=== PATIENT | female | born 1965 | race Caucasian/White ===

== ENCOUNTER 2017-05-04 15:07 | Emergency (ER) | payer MEDICARE, MEDICAID ==
--- NOTE | 2017-05-04 18:01 | Emergency Department Record ---
History of Present Illness - General Chief Complaint: Syncope Stated Complaint: SYNCOPE EPISODE Time Seen by Provider: 05/04/17 15:42 Source: Patient Mode of Arrival: EMS Limitations: No limitations - History of Present Illness Initial Comments: pt states she passed out last night and has done this many many times. she states this was not a seizure, she has a hx of seizures, but this was witnessed by her dad who said she just passed out so he went home. she talked to her dad this morning when she woke up and he told her to go to the hospital. she had a ct and lab work yesterday. she sees a neurologist for her migraines and seizures.pt states this has happened for many months MD Complaint: Loss of consciousness Onset/Timin -: Days(s) Prodromal Symptoms: Headache Witnessed: Yes - by bystander Injuries Sustained Associated with Event: None Current Symptoms: Headache - [place] Coma Scale Eye Response: (4) Open spontaneously Motor Response: (6) Obeys commands Verbal Response: (5) Oriented [place] Total: 15 - Symptoms of Stroke Onset of Symptoms Date: 05/03/17 Onset of Symptoms Time: 22:00 - Related Data Allergies Allergy/AdvReac Type Severity Reaction Status Date / Time ketorolac tromethamine Allergy HIVES Verified 05/04/17 15:19 [From Toradol] citalopram hydrobromide AdvReac seizure Verified 05/04/17 15:19 [From Celexa] Travel Screening - Travel/Exposure Within Last 30 Days Have you traveled within the last 30 days?: No - Travel/Exposure Within Last Year Have you traveled outside the [place] in the last year?: No - Additonal Travel Details Have you been exposed to anyone with a communicable illness?: No - Travel Symptoms Symptom Screening: None Review of Systems Reviewed: No additional complaints except as noted below Constitutional: Reports: As per HPI. Denies: Chills, Fever, Malaise, Night sweats, Weakness, Weight change Eyes: Reports: As per HPI. Denies: Eye discharge, Eye pain, Photophobia, Vision change ENT: Reports: As per HPI. Denies: Congestion, Dental pain, Ear pain, Epistaxis , Hearing loss, Throat pain Respiratory: Reports: As per HPI. Denies: Cough, Dyspnea, Hemoptysis, Stridor, Wheezes Cardiovascular: Reports: As per HPI. Denies: Arrhythmia, Chest pain, Dyspnea on exertion, Edema, Murmurs, Orthopnea, Palpitations, Paroxysmal nocturnal dyspnea, Rheumatic Fever, Syncope Endocrine: Reports: As per HPI. Denies: Fatigue, Heat or cold intolerance, Polydipsia, Polyuria Gastrointestinal: Reports: As per HPI. Denies: Abdominal pain, Constipation, Diarrhea, Hematemesis, Hematochezia, Melena, Nausea, Vomiting Genitourinary: Reports: As per HPI. Denies: Abnormal menses, Discharge, Dyspareunia, Dysuria, Frequency, Hematuria, Incontinence, Retention, Urgency Musculoskeletal: Reports: As per HPI. Denies: Arthralgia, Back pain, Gout, Joint swelling, Myalgia, Neck pain Skin: Reports: As per HPI. Denies: Bruising, Change in color, Change in hair/ nails, Lesions, Pruritus, Rash Neurological: Reports: As per HPI. Denies: Abnormal gait, Confusion, Headache, Numbness, Paresthesias, Seizure, Tingling, Tremors, Vertigo, Weakness Psychiatric: Reports: As per HPI. Denies: Anxiety, Auditory hallucinations, Depression, Homicidal thoughts, Suicidal thoughts, Visual hallucinations Hematological/Lymphatic: Reports: As per HPI. Denies: Anemia, Blood Clots, Easy bleeding, Easy bruising, Swollen glands Past Medical History - SOCIAL HISTORY Smoking Status: Light tobacco smoker (<10/day) Alcohol Use: None Drug Use: None - RESPIRATORY Hx Respiratory Disorders: Yes Hx Asthma: Yes (controlled for now does inhalers and neb txs) Hx Bronchitis: Yes (last winter) Hx COPD: Yes Comment:: denies fever - CARDIOVASCULAR Hx Cardio Disorders: Yes Hx Chest Pain: Yes (states anxiety) Hx Hypotension: Yes (states gets real low) - NEURO Hx Neuro Disorders: Yes Hx of Migraines: Yes (trigeminal neuralgia) Hx Seizures: Yes (pt 7unsure of when last seizure was.) Comment:: daily headaches sees neurologist states grand mal seizures - GI Hx GI Disorders: Yes Hx Abdominal Pain: Yes Hx Reflux: Yes Hx Nausea/Vomiting: Yes Hx Wt Loss/Wt Gain: Yes - Hx Genitourinary Disorders: No - ENDOCRINE Hx Endocrine Disorders: No Hx Diabetes: No Hx Thyroid Disease: No - MUSCULOSKELETAL Hx Musculoskeletal Disorders: Yes Hx Arthritis: Yes Hx Fibromyalgia: Yes (dx in 20's) - PSYCH Hx Psych Problems: Yes Hx Anxiety: Yes Hx Depression: Yes Comment:: pt very hard to get PAT info and med list from, uncooperative. - HEMATOLOGY/ONCOLOGY Hx Hematology/Oncology Disorders: Yes Hx Bruising: Yes Hx Unexplained Bleeding: No (denies) Family Medical History Any Significant Family History?: Yes Hx HTN: Father Physical Exam - General General Appearance: Alert, Oriented x3, Cooperative, Mild distress - Head Head exam: Normal inspection - Eye Eye exam: Normal appearance, PERRL, EOMI Pupils: Normal accommodation - ENT ENT exam: Normal exam, Mucous membranes moist, Normal external ear exam, Normal orophraynx Ear exam: Normal external inspection. negative: External canal tenderness Nasal Exam: Normal inspection. negative: Discharge, Sinus tenderness Mouth exam: Normal external inspection, Tongue normal Teeth exam: Normal inspection. negative: Dental caries Throat exam: Normal inspection. negative: Tonsillar erythema, Tonsillar exudate - Neck Neck exam: Normal inspection, Full ROM. negative: Tenderness - Respiratory Respiratory exam: Normal lung sounds bilaterally. negative: Respiratory distress - Cardiovascular Cardiovascular Exam: Regular rate, Normal rhythm, Normal heart sounds - GI/Abdominal GI/Abdominal exam: Soft, Normal bowel sounds. negative: Tenderness - Rectal Rectal exam: Deferred - exam: Deferred - Extremities Extremities exam: Normal inspection, Full ROM, Normal capillary refill. negative: Tenderness - Back Back exam: Reports: Normal inspection, Full ROM. Denies: Muscle spasm, Rash noted, Tenderness - Neurological Neurological exam: Alert, Normal gait, Oriented X3, Reflexes normal - Psychiatric Psychiatric exam: Normal affect, Normal mood - Skin Skin exam: Dry, Intact, Normal color, Warm Course Vital Signs 05/04/17 05/04/17 15:11 17:15 Temperature 98.2 F Pulse Rate 92 H Pulse Rate [ 71 Pulse Ox Probe] Respiratory 16 16 Rate Blood Pressure 121/84 Blood Pressure 95/67 [Right Arm] Pulse Ox 95 100 Medical Decision Making - Lab Data Lab Results 05/04/17 Range/Units 16:32 Troponin I < 0.30 (0.00-0.300) ng/mL Disposition Disposition: Discharge Clinical Impression: Syncope Qualifiers: Syncope type: unspecified Qualified Code(s): R55 - Syncope and collapse Disposition: Home, Self-Care Condition: (1) Good Instructions: Syncope (ED) Additional Instructions: follow up with family doctor and neurologist and with leadership program intern. return sooner if worse. no driving, climbing. Referrals: JIMMIE HUNTER M.D. [MEDICAL DOCTOR] - [facility] [Provider Group] Forms: Patient Portal Access Quality - Quality Measures Quality Measures: N/A - Blood Pressure Screening Does Patient Have Any of the Following: No Blood Pressure Classification: Pre-Hypertensive BP Reading Systolic Measurement: 121 Diastolic Measurement: 84 Screening for High Blood Pressure: < Pre-Hypertensive BP, F/U Documented > [ G8950] Pre-Hypertensive Follow-up Interventions: Follow-up with rescreen every year.
== END 2017-05-04 18:16 | disposition home or self-care (01) ==
LOC: ER 15:07
DX: R55 Syncope and collapse (principal); R51 Headache
CPT/HCPCS: 84484; 93005; 93010; 99284

== ENCOUNTER 2018-02-09 22:51 | Emergency (ER) | payer MEDICARE, MEDICAID ==
[2018-02-09 23:25] LABS: BASO % 0.3 % (0-6); EOS % 1.2 % (0-6); GRAN % 60.5 % (47-80); HEMATOCRIT 41.1 % (35.0-47.0); HEMOGLOBIN 14.1 gm/dl (11.6-16.0); LYMPH % 32.2 % (16-45); MEAN CELL VOLUME 95.1 fl (81-97); MEAN CORPUSCULAR HEMOGLOBIN 32.6 pg (27-33); MEAN CORPUSCULAR HGB CONC 34.3 g/dl (32-36); MEAN PLATELET VOLUME 10.5 fl (7.4-10.4); MONO % 5.8 % (0-9); PLATELET COUNT 188 K/uL (130-400); RED BLOOD COUNT 4.32 M/uL (3.80-5.40); RED CELL DISTRIBUTION WIDTH 13.9 % (11.5-14.5); WHITE BLOOD COUNT W/O DIFF 7.4 K/uL (4.2-12.2)
[2018-02-09 23:34] LABS: BLOOD UREA NITROGEN 9 mg/dL (6-20); CREATININE 0.4 mg/dL (0.5-0.9); EST GLOMERULAR FILTRATION RATE > 60 mL/min
[2018-02-09 23:35] LABS: TOTAL PROTEIN 5.8 g/dL (6.6-8.7)
[2018-02-09 23:37] LABS: GLUCOSE,RANDOM 125 mg/dL (74-109)
[2018-02-09 23:40] LABS: ALB/GLOB RATIO 1.8 (1.1-1.8); ALBUMIN 3.7 g/dL (4.0-5.0); ALKALINE PHOSPHATASE 150 U/L (35-104); ALT/SGPT 12 U/L (<33); AST/SGOT 14 U/L (10.0-35.0)
[2018-02-09] MEDS ORDERED: POTASSIUM CHLORIDE 20 MEQ TABLET PO ONE (23:47)
[2018-02-10 00:08] LABS: URINE APPEARANCE CLEAR; URINE BILIRUBIN NEGATIVE (NEGATIVE); URINE BLOOD NEGATIVE (NEGATIVE); URINE COLOR YELLOW; URINE GLUCOSE (UA) NEGATIVE (NEGATIVE); URINE KETONE NEGATIVE (NEGATIVE); URINE LEUKOCYTE ESTERASE NEGATIVE (NEGATIVE); URINE NITRITE POSITIVE (NEGATIVE); URINE PROTEIN NEGATIVE (NEGATIVE); URINE UROBILINOGEN 0.2 E.U./dL (0.20 - 1.00)
[2018-02-10 00:15] LABS: URINE EPITHELIAL CELLS 0 - 2 (FEW); URINE RBC 0 - 2 (NONE SEEN)
[2018-02-10 00:16] LABS: URINE BACTERIA 1+
--- NOTE | 2018-02-10 01:05 | Emergency Department Record ---
History of Present Illness - General Chief Complaint: Fall Injury Stated Complaint: FALL Time Seen by Provider: 02/09/18 23:05 Source: Patient, EMS Mode of Arrival: Ambulatory Limitations: No limitations - History of Present Illness Initial Comments: pt fell 4 days ago hitting her head and has had increased difficulty. she states she was going to have a seizure [she has a hx of seizures] and had difficulty getting to the front door. she had taken morphine and oxycontin. 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 (4) Fall Witnessed: No Place Fall Occurred: Home Loss of Consciousness: None Prolonged Down Time?: Unclear Symptoms Prior to Fall: None Location: Head Severity scale (1-10): 8 - [place] Coma Scale Eye Response: (4) Open spontaneously Motor Response: (6) Obeys commands Verbal Response: (5) Oriented [place] Total: 15 - Related Data Allergies Allergy/AdvReac Type Severity Reaction Status Date / Time ketorolac tromethamine Allergy HIVES Verified 05/04/17 15:19 [From Toradol] citalopram hydrobromide AdvReac seizure Verified 05/04/17 15:19 [From Celexa] Travel Screening - Travel/Exposure Within Last 30 Days Have you traveled within the last 30 days?: No - Travel Symptoms Symptom Screening: None Review of Systems Reviewed: No additional complaints except as noted below Constitutional: Reports: As per HPI, Weakness. Denies: Chills, Fever, Malaise, Night sweats, Weight change Eyes: Reports: As per HPI. Denies: Eye discharge, Eye pain, Photophobia, Vision change ENT: Reports: As per HPI. Denies: Congestion, Dental pain, Ear pain, Epistaxis , Hearing loss, Throat pain Respiratory: Reports: As per HPI. Denies: Cough, Dyspnea, Hemoptysis, Stridor, Wheezes Cardiovascular: Reports: As per HPI. Denies: Arrhythmia, Chest pain, Dyspnea on exertion, Edema, Murmurs, Orthopnea, Palpitations, Paroxysmal nocturnal dyspnea, Rheumatic Fever, Syncope Endocrine: Reports: As per HPI. Denies: Fatigue, Heat or cold intolerance, Polydipsia, Polyuria Gastrointestinal: Reports: As per HPI. Denies: Abdominal pain, Constipation, Diarrhea, Hematemesis, Hematochezia, Melena, Nausea, Vomiting Genitourinary: Reports: As per HPI. Denies: Abnormal menses, Discharge, Dyspareunia, Dysuria, Frequency, Hematuria, Incontinence, Retention, Urgency Musculoskeletal: Reports: As per HPI. Denies: Arthralgia, Back pain, Gout, Joint swelling, Myalgia, Neck pain Skin: Reports: As per HPI. Denies: Bruising, Change in color, Change in hair/ nails, Lesions, Pruritus, Rash Neurological: Reports: As per HPI. Denies: Abnormal gait, Confusion, Headache, Numbness, Paresthesias, Seizure, Tingling, Tremors, Vertigo, Weakness Psychiatric: Reports: As per HPI. Denies: Anxiety, Auditory hallucinations, Depression, Homicidal thoughts, Suicidal thoughts, Visual hallucinations Hematological/Lymphatic: Reports: As per HPI. Denies: Anemia, Blood Clots, Easy bleeding, Easy bruising, Swollen glands Past Medical History - SOCIAL HISTORY Smoking Status: Light tobacco smoker (<10/day) - RESPIRATORY Hx Respiratory Disorders: Yes Hx Asthma: Yes (controlled for now does inhalers and neb txs) Hx Bronchitis: Yes (last winter) Hx COPD: Yes - CARDIOVASCULAR Hx Cardio Disorders: Yes Hx Chest Pain: Yes (states anxiety) Hx Hypotension: Yes (states gets real low) - NEURO Hx Neuro Disorders: Yes Hx of Migraines: Yes (trigeminal neuralgia) Hx Seizures: Yes (pt unsure of when last seizure was.) Comment:: daily headaches sees neurologist states grand mal seizures - GI Hx GI Disorders: Yes Hx Abdominal Pain: Yes Hx Reflux: Yes Hx Nausea/Vomiting: Yes Hx Wt Loss/Wt Gain: Yes - Hx Genitourinary Disorders: No - ENDOCRINE Hx Endocrine Disorders: No Hx Diabetes: No Hx Thyroid Disease: No - MUSCULOSKELETAL Hx Musculoskeletal Disorders: Yes Hx Arthritis: Yes Hx Fibromyalgia: Yes (dx in 20's) - PSYCH Hx Psych Problems: Yes Hx Anxiety: Yes Hx Depression: Yes Comment:: pt very hard to get PAT info and med list from, uncooperative. - HEMATOLOGY/ONCOLOGY Hx Hematology/Oncology Disorders: Yes Hx Bruising: Yes Hx Unexplained Bleeding: No (denies) Family Medical History Any Significant Family History?: Yes Hx HTN: Father Physical Exam - General General Appearance: Alert, Oriented x3, Cooperative, Mild distress - Head Head exam: Normal inspection - Eye Eye exam: Normal appearance, PERRL, EOMI Pupils: Normal accommodation - ENT ENT exam: Normal exam, Mucous membranes moist, Normal external ear exam, Normal orophraynx Ear exam: Normal external inspection. negative: External canal tenderness Nasal Exam: Normal inspection. negative: Discharge, Sinus tenderness Mouth exam: Normal external inspection, Tongue normal Teeth exam: Normal inspection. negative: Dental caries Throat exam: Normal inspection. negative: Tonsillar erythema, Tonsillar exudate - Neck Neck exam: Normal inspection, Full ROM. negative: Tenderness - Respiratory Respiratory exam: Normal lung sounds bilaterally. negative: Respiratory distress - Cardiovascular Cardiovascular Exam: Regular rate, Normal rhythm, Normal heart sounds - GI/Abdominal GI/Abdominal exam: Soft, Normal bowel sounds. negative: Tenderness - Rectal Rectal exam: Deferred - exam: Deferred - Extremities Extremities exam: Normal inspection, Full ROM, Normal capillary refill. negative: Tenderness - Back Back exam: Reports: Normal inspection, Full ROM. Denies: Muscle spasm, Rash noted, Tenderness - Neurological Neurological exam: Alert, CN II-XII intact, Normal gait, Oriented X3 - Psychiatric Psychiatric exam: Normal affect, Normal mood - Skin Skin exam: Dry, Intact, Normal color, Warm Course Vital Signs 02/09/18 02/09/18 02/10/18 22:57 23:50 00:55 Temperature 98.2 F Pulse Rate [ 74 Accordion Maker ] Pulse Rate [ 80 69 Pulse Ox Probe] Respiratory 16 16 24 Rate Blood Pressure 112/82 96/78 [Left Arm] Blood Pressure 116/87 [Right Arm] Pulse Ox 97 95 93 L - Reevaluation(s) Reevaluation #1: 02/10/18 01:04 pt usually uses a cane. she was able to ambulate around the dept with a walker Medical Decision Making - Lab Data Result diagrams: 02/09/18 23:03 02/09/18 23:03 Lab Results 02/09/18 02/09/18 02/10/18 Range/Units 23:03 23:03 00:09 WBC 7.4 (4.2-12.2) K/uL RBC 4.32 (3.80-5.40) M/uL Hgb 14.1 (11.6-16.0) gm/dl Hct 41.1 (35.0-47.0) % MCV 95.1 (81-97) fl MCH 32.6 (27-33) pg MCHC 34.3 (32-36) g/dl RDW 13.9 (11.5-14.5) % Plt Count 188 (130-400) K/uL MPV 10.5 H (7.4-10.4) fl Gran % 60.5 (47-80) % Lymphocytes % 32.2 (16-45) % Monocytes % 5.8 (0-9) % Eosinophils % 1.2 (0-6) % Basophils % 0.3 (0-6) % Sodium 134 L (136-145) mmol/L Potassium 3.2 L (3.4-4.5) mmol/L Chloride 95 L (98-107) mmol/L Carbon Dioxide 23.0 (22-29) mmol/L Anion Gap 16.0 (7-16) BUN 9 (6-20) mg/dL Creatinine 0.4 L (0.5-0.9) mg/dL Estimated GFR > 60 mL/min Random Glucose 125 H (74-109) mg/dL Calcium 8.7 (8.6-10.0) mg/dL Total Bilirubin 0.30 (0.2-1.0) mg/dL AST 14 (10.0-35.0) U/L ALT 12 (<33) U/L Alkaline Phosphatase 150 H (35-104) U/L Total Protein 5.8 L (6.6-8.7) g/dL Albumin 3.7 L (4.0-5.0) g/dL Globulin 2.1 (1.4-4.8) gm/dL Albumin/Globulin Ratio 1.8 (1.1-1.8) Urine Color Yellow Urine Appearance Clear Urine pH 7.0 (5.0-8.0) Ur Specific [place] 1.010 (1.002-1.030) Urine Protein Negative (NEGATIVE) Urine Glucose (UA) Negative (NEGATIVE) Urine Ketones Negative (NEGATIVE) Urine Blood Negative (NEGATIVE) Urine Nitrite Positive H (NEGATIVE) Urine Bilirubin Negative (NEGATIVE) Urine Urobilinogen 0.2 (0.20 - 1.00) E.U./dL Ur Leukocyte Esterase Negative (NEGATIVE) Urine RBC 0 - 2 (NONE SEEN) Urine WBC 6 - 10 (0-2/hpf) Ur Epithelial Cells 0 - 2 (FEW) Urine Bacteria 1+ Disposition Disposition: Discharge Clinical Impression: Head injury Qualifiers: Encounter type: initial encounter Qualified Code(s): S09.90XA - Unspecified injury of head, initial encounter Disposition: Home, Self-Care Condition: (1) Good Instructions: Fall Prevention for Older Adults (ED), Head Injury (ED) Additional Instructions: follow up with family doctor. return sooner if worse Quality - Quality Measures Quality Measures: N/A, Blunt Head Trauma (>2yr) - Blunt Head Trauma - Adult Quality Measure: Measure #415: Utilization of CT for Minor Blunt Head Trauma Was CT ordered: Yes Does Patient Have Any of the Following: No Exclusions Patient Presented Within 24 Hours of Injury: No [place] Score: Please complete [place] Coma Scale above Utilization of CT for Minor Blunt Head Trauma: Not Eligible For Measure Additional Inclusion Criteria: More than 24hrs (OR) GCS not 15 (OR) CT not ordered. Not Eligible Reason: Injury Greater Than 24 Hours Ago - Blood Pressure Screening Does Patient Have Any of the Following: No Blood Pressure Classification: Pre-Hypertensive BP Reading Systolic Measurement: 116 Diastolic Measurement: 87 Screening for High Blood Pressure: < Pre-Hypertensive BP, F/U Documented > [ G8950] Pre-Hypertensive Follow-up Interventions: Follow-up with rescreen every year.
--- NOTE | 2018-02-12 12:30 | RADIOLOGY REPORT ---
EXAM: FINGER(S), LEFT HISTORY: PATIENT FELL THREE DAYS AGO WITH INJURY TO MIDDLE FINGER, LEFT HAND. TECHNIQUE: Three views, left middle finger. Preliminary report provided by [facility]. COMPARISON: None. ENCOUNTER: Initial. FINDINGS: Mild soft tissue swelling is seen at the PIP joint. Mild degenerative arthritis at the PIP joint as well. No definite fracture or dislocation of the left third finger identified. Minor degenerative change at the first CMC articulation along the radial aspect of the wrist also incidentally noted. IMPRESSION: MILD SOFT TISSUE SWELLING AT THE PIP JOINT WITH NO DEFINITE FRACTURE IDENTIFIED. JOB NUMBER: [id number] [facility]TDD
--- NOTE | 2018-02-12 12:33 | CT SCAN REPORT ---
EXAM: CT SCAN HEAD WO CONTRAST HISTORY: PATIENT FELL THREE DAYS AGO WITH HEADACHE. TECHNIQUE: Axial CT scan of the head performed without IV contrast. Preliminary report provided by [facility]. COMPARISON: Head CT dated 05/03/17. ENCOUNTER: Initial. FINDINGS: No definite acute intracranial hemorrhage identified. No focal mass effect or midline shift apparent. No definite acute infarct or intracranial mass lesion is seen. No depressed calvarial fracture evident. IMPRESSION: EMERGENCY NONCONTRAST HEAD CT APPEARS NEGATIVE WITH NO DEFINITE ACUTE INTRACRANIAL HEMORRHAGE OR FOCAL MASS EFFECT IDENTIFIED. J[facility]BER: [id number] [facility]
== END 2018-02-10 01:18 | disposition home or self-care (01) ==
LOC: ER 22:51
DX: S09.90XA Unspecified injury of head, initial encounter (principal); M79.645 Pain in left finger(s); G40.909 Epilepsy, unspecified, not intractable, without status epilepticus; F17.210 Nicotine dependence, cigarettes, uncomplicated; W18.00XA Striking against unspecified object with subsequent fall, initial encounter; Y92.009 Unspecified place in unspecified non-institutional (private) residence as the place of occurrence of the external cause
CPT/HCPCS: 70450; 73140; 80053; 81001; 85025; 99283; 99284

== ENCOUNTER 2018-06-12 12:54 | Observation (INO) | payer MEDICARE, MEDICAID ==
[2018-06-12 13:10] LABS: BASO % 0.4 % (0-6); EOS % 0.1 % (0-6); GRAN % 74.7 % (47-80); HEMATOCRIT 42.2 % (35.0-47.0); HEMOGLOBIN 14.9 gm/dl (11.6-16.0); LYMPH % 20.1 % (16-45); MEAN CELL VOLUME 95.9 fl (81-97); MEAN CORPUSCULAR HEMOGLOBIN 33.9 pg (27-33); MEAN CORPUSCULAR HGB CONC 35.3 g/dl (32-36); MEAN PLATELET VOLUME 9.6 fl (7.4-10.4); MONO % 4.7 % (0-9); PLATELET COUNT 362 K/uL (130-400); RED CELL DISTRIBUTION WIDTH 14.6 % (11.5-14.5); WHITE BLOOD COUNT W/O DIFF 7.9 K/uL (4.2-12.2)
--- NOTE | 2018-06-12 13:11 | Emergency Department Record ---
History of Present Illness - General Stated Complaint: NUMBNESS/HEAD PAIN Time Seen by Provider: 06/12/18 12:58 Source: Patient - History of Present Illness Initial Comments: The patient called EMS to bring her here because her cat was circling around her "telling her to come here because she was going to seize." She states she has had diarrhea which is not bloody or black, and colitis for which she is taking Cipro since she was seen Saturday06-09-18 at her [facility] clinic. She also has a history of seizures for which she takes Lamictal. Her last seizure was about a month ago. She states she is numb all four extremities and has a headache in her facial area, "I think I have a sinus infection." She gives a scattered history but knows the month, year and location, stating it is Saturday (when today is ). She has not been eating "because everything I eat just comes out the other end." She lives alone in an apartment. EMS reports it was dis-sheveled and smelled strongly of smoke. MD Complaint: Other - Related Data Home Medications Medication Instructions Recorded Confirmed Last Taken Ciprofloxacin HCl [Cipro] 500 mg PO Q12HR 06/12/18 06/12/18 Unknown Multivitamin [Multi-Vitamin Daily] 1 each PO DAILY 06/12/18 06/12/18 Unknown Potassium Chloride 10 meq PO DAILY 06/12/18 06/12/18 Unknown Allergies Allergy/AdvReac Type Severity Reaction Status Date / Time ketorolac tromethamine Allergy HIVES Verified 06/12/18 13:08 [From Toradol] citalopram hydrobromide AdvReac seizure Verified 06/12/18 13:08 [From Celexa] Review of Systems Reviewed: No additional complaints except as noted below Constitutional: Reports: As per HPI. Denies: Chills, Fever, Malaise, Night sweats, Weakness, Weight change Eyes: Reports: As per HPI. Denies: Eye discharge, Eye pain, Photophobia, Vision change ENT: Reports: As per HPI. Denies: Congestion, Dental pain, Ear pain, Epistaxis , Hearing loss, Throat pain Respiratory: Reports: As per HPI. Denies: Cough, Dyspnea, Hemoptysis, Stridor, Wheezes Cardiovascular: Reports: As per HPI. Denies: Arrhythmia, Chest pain, Dyspnea on exertion, Edema, Murmurs, Orthopnea, Palpitations, Paroxysmal nocturnal dyspnea, Rheumatic Fever, Syncope Endocrine: Reports: As per HPI. Denies: Fatigue, Heat or cold intolerance, Polydipsia, Polyuria Gastrointestinal: Reports: As per HPI. Denies: Abdominal pain, Constipation, Diarrhea, Hematemesis, Hematochezia, Melena, Nausea, Vomiting Genitourinary: Reports: As per HPI. Denies: Abnormal menses, Discharge, Dyspareunia, Dysuria, Frequency, Hematuria, Incontinence, Retention, Urgency Musculoskeletal: Reports: As per HPI. Denies: Arthralgia, Back pain, Gout, Joint swelling, Myalgia, Neck pain Skin: Reports: As per HPI. Denies: Bruising, Change in color, Change in hair/ nails, Lesions, Pruritus, Rash Neurological: Reports: As per HPI. Denies: Abnormal gait, Confusion, Headache, Numbness, Paresthesias, Seizure, Tingling, Tremors, Vertigo, Weakness Psychiatric: Reports: As per HPI. Denies: Anxiety, Auditory hallucinations, Depression, Homicidal thoughts, Suicidal thoughts, Visual hallucinations Hematological/Lymphatic: Reports: As per HPI. Denies: Anemia, Blood Clots, Easy bleeding, Easy bruising, Swollen glands Past Medical History - SOCIAL HISTORY Smoking Status: Current every day smoker - RESPIRATORY Hx Respiratory Disorders: Yes Hx Asthma: Yes (controlled for now does inhalers and neb txs) Hx Bronchitis: Yes (last winter) Hx COPD: Yes - CARDIOVASCULAR Hx Cardio Disorders: Yes Hx Chest Pain: Yes (states anxiety) Hx Hypotension: Yes (states gets real low) - NEURO Hx Neuro Disorders: Yes Hx of Migraines: Yes (trigeminal neuralgia) Hx Seizures: Yes (pt unsure of when last seizure was.) Comment:: daily headaches sees neurologist states grand mal seizures - GI Hx GI Disorders: Yes Hx Abdominal Pain: Yes Hx Reflux: Yes Hx Nausea/Vomiting: Yes Hx Wt Loss/Wt Gain: Yes - Hx Genitourinary Disorders: No - ENDOCRINE Hx Endocrine Disorders: No Hx Diabetes: No Hx Thyroid Disease: No - MUSCULOSKELETAL Hx Musculoskeletal Disorders: Yes Hx Arthritis: Yes Hx Fibromyalgia: Yes (dx in 20's) - PSYCH Hx Psych Problems: Yes Hx Anxiety: Yes Hx Depression: Yes Comment:: pt very hard to get PAT info and med list from, uncooperative. - HEMATOLOGY/ONCOLOGY Hx Hematology/Oncology Disorders: Yes Hx Bruising: Yes Hx Unexplained Bleeding: No (denies) Family Medical History Hx HTN: Father Physical Exam - General General Appearance: Alert, Oriented x3, Cooperative, Mild distress (laying curled up on the cart requesting we cross tie turner the lights) - Head Head exam: Normal inspection - Eye Eye exam: Normal appearance, PERRL, EOMI. negative: Conjunctival injection, Nystagmus Pupils: Normal accommodation - ENT ENT exam: Normal exam, Mucous membranes dry, Normal external ear exam, Normal orophraynx, TM's normal bilaterally Ear exam: Normal external inspection. negative: External canal tenderness Nasal Exam: Normal inspection. negative: Discharge, Sinus tenderness Mouth exam: Normal external inspection, Tongue normal Teeth exam: Normal inspection. negative: Dental caries Throat exam: Normal inspection. negative: Tonsillar erythema, Tonsillar exudate - Neck Neck exam: Normal inspection, Full ROM. negative: Lymphadenopathy, Meningismus , Tenderness - Respiratory Respiratory exam: Normal lung sounds bilaterally, Decreased breath sounds, Prolonged expiratory. negative: Accessory muscle use, Chest wall tenderness, Respiratory distress, Stridor, Wheezes - Cardiovascular Cardiovascular Exam: Regular rate, Normal rhythm, Normal heart sounds - GI/Abdominal GI/Abdominal exam: Soft, Normal bowel sounds. negative: Distended, Guarding, Tenderness - Rectal Rectal exam: Deferred - exam: Deferred - Extremities Extremities exam: Normal inspection, Full ROM, Normal capillary refill. negative: Calf tenderness, Pedal edema, Tenderness - Back Back exam: Reports: Normal inspection, Full ROM. Denies: CVA tenderness (R), CVA tenderness (L), Muscle spasm, Rash noted, Tenderness - Neurological Neurological exam: Alert, CN II-XII intact, Normal gait, Oriented X3, Reflexes normal. negative: Motor sensory deficit - Psychiatric Psychiatric exam: Normal affect, Normal mood - Skin Skin exam: Dry, Intact, Normal color, Warm Course - Reevaluation(s) Reevaluation #1: 06/12/18 14:33 The patient had a BM mixed with urine at the bedside. All other results are back. Reevaluation #2: Patient is sleeping soundly curled up on cart. Discussed with Jessica LOMBARDI who agrees to admit to Dr. Rico's service OBV. Will also obtain social media senior associate consult. 06/12/18 14:56 06/12/18 14:57 Medical Decision Making - Data Complexity MDM Data: Labs Ordered and/or Reviewed, X-Ray Ordered and/or Reviewed ( Noncontrast Head CT: Negative for abnormality. CXR: Hyperinflation, cw COPD, no acute infiltrate, mild dextroscoliosis. Per radiologist.), EKG Ordered and/ or Reviewed (NSR @94/min; probable left atrial enlargement, no acute abnormality.) - Lab Data Result diagrams: 06/12/18 12:40 06/12/18 12:40 Disposition Disposition: Admit Clinical Impression: Hypokalemia, Dehydration, Colitis, History of seizure disorder COPD (chronic obstructive pulmonary disease) Qualifiers: COPD type: unspecified COPD Qualified Code(s): J44.9 - Chronic obstructive pulmonary disease, unspecified Disposition: Still a Patient at [facility] Decision to Admit: Admit from ER Decision to Admit Date: 06/12/18 Decision to Admit Time: 15:00 Accepting Physician: Dr. Rico/ Jessica LOMBARDI Time Discussed w/Accepting Physician: 15:00 Condition: (1) Good Quality - Quality Measures Quality Measures: N/A - Blood Pressure Screening Does Patient Have Any of the Following: No Blood Pressure Classification: Hypertensive Reading Systolic Measurement: 136 Diastolic Measurement: 90 Screening for High Blood Pressure: < Normal BP, F/U Not Required > [G8783]
[2018-06-12 13:21] LABS: BLOOD UREA NITROGEN 6 mg/dL (6-20); CREATININE 0.4 mg/dL (0.5-0.9); EST GLOMERULAR FILTRATION RATE > 60 mL/min
[2018-06-12 13:22] LABS: TOTAL PROTEIN 6.8 g/dL (6.6-8.7)
[2018-06-12 13:24] LABS: GLUCOSE,RANDOM 143 mg/dL (74-109)
[2018-06-12 13:26] LABS: PARTIAL THROMBOPLASTIN TIME 29.3 SECONDS (24.5-39.1); PROTHROMBIN TIME (PATIENT) 10.3 SECONDS (9.5-12.1)
[2018-06-12 13:27] LABS: ALB/GLOB RATIO 1.8 (1.1-1.8); ALBUMIN 4.4 g/dL (4.0-5.0); ALKALINE PHOSPHATASE 187 U/L (35-104); ALT/SGPT 25 U/L (<33); AST/SGOT 18 U/L (10.0-35.0)
[2018-06-12] MEDS ORDERED: 0.9 % SODIUM CHLORIDE 1,000 ML BAG IV ONE (13:27)
[2018-06-12] MEDS ORDERED: POTASSIUM CHLORIDE 20 MEQ TABLET PO ONE (13:32)
[2018-06-12 13:39] LABS: THYROID STIMULATING HORMONE 1.06 uIU/mL (0.270-4.20)
[2018-06-12] MEDS ORDERED: ACETAMINOPHEN 325 MG TAB PO ONE (13:47)
[2018-06-12] MEDS ORDERED: POTASSIUM CHL 20MEQ IN 1L NS 20 MEQ/1,000 ML BAG IV ONE ×2 (13:56→16:00)
[2018-06-12] MEDS ORDERED: LORAZEPAM 1 MG PO PRN (15:51)
[2018-06-12] MEDS ORDERED: ALBUTEROL HFA 8 GM INHALER INH PRN (15:51)
[2018-06-12] MEDS ORDERED: AL HYDROX/MAG HYDROX 30ML UD PO PRN (15:51)
[2018-06-12] MEDS: CLONAZEPAM 1MG TABLET PO SCH ×2 (17:10→21:22)
[2018-06-12] MEDS: BUTALB/ACETAMINOPHEN/CAFFEINE TABLET PO SCH ×2 (17:10→21:23)
[2018-06-12] MEDS: METRONIDAZOLE 250 MG TABLET PO SCH ×2 (17:12→21:22)
[2018-06-12] MEDS ORDERED: ALPRAZOLAM 1 MG TAB PO SCH (19:00)
[2018-06-12] MEDS ORDERED: NICOTINE 21 MG/24 HOUR PATCH TD SCH (19:45)
[2018-06-12] MEDS: ACETAMINOPHEN 325 MG TAB PO PRN (21:22)
[2018-06-12] MEDS: CIPROFLOXACIN HCL 500 MG TABLET PO SCH (21:22)
[2018-06-12] MEDS: LAMOTRIGINE 100 MG TABLET PO SCH (21:23)
[2018-06-12] MEDS: OXCARBAZEPINE 300 MG PO SCH (21:28)
[2018-06-12] MEDS ORDERED: OLANZAPINE 15 MG PO SCH (22:00)
[2018-06-12] MEDS ORDERED: QUETIAPINE FUMARATE 100 MG TABLET PO SCH (22:00)
[2018-06-12] MEDS ORDERED: ZONISAMIDE 400 MG PO SCH (22:00)
[2018-06-12 23:44] LABS: ALB/GLOB RATIO 1.8 (1.1-1.8); ALBUMIN 3.5 g/dL (4.0-5.0); ALKALINE PHOSPHATASE 148 U/L (35-104); ALT/SGPT 18 U/L (<33); AST/SGOT 14 U/L (10.0-35.0); BLOOD UREA NITROGEN 4 mg/dL (6-20); CREATININE 0.4 mg/dL (0.5-0.9); EST GLOMERULAR FILTRATION RATE > 60 mL/min; GLUCOSE,RANDOM 94 mg/dL (74-109); TOTAL PROTEIN 5.5 g/dL (6.6-8.7)
[2018-06-12] MEDS ORDERED: 0.9 % SODIUM CHLORIDE 1000ML 1,000 ML IV PRN (23:51)
[2018-06-13 01:21] LABS: URINE APPEARANCE CLEAR; URINE BILIRUBIN NEGATIVE (NEGATIVE); URINE BLOOD NEGATIVE (NEGATIVE); URINE COLOR YELLOW; URINE GLUCOSE (UA) NEGATIVE (NEGATIVE); URINE KETONE NEGATIVE (NEGATIVE); URINE LEUKOCYTE ESTERASE NEGATIVE (NEGATIVE); URINE NITRITE NEGATIVE (NEGATIVE); URINE PROTEIN NEGATIVE (NEGATIVE); URINE UROBILINOGEN 0.2 E.U./dL (0.20 - 1.00)
[2018-06-13] MEDS: ACETAMINOPHEN 325 MG TAB PO PRN ×2 (01:21→06:34)
[2018-06-13 01:25] LABS: AMPHETAMINE SCREEN URINE NOT DETECTED; COCAINE SCREEN URINE NOT DETECTED; METHADONE SCREEN URINE NOT DETECTED; METHAMPHETAMINE SCREEN NOT DETECTED; OPIATE SCREEN URINE NOT DETECTED; OXYCODONE SCREEN URINE NOT DETECTED; PHENCYCLIDINE SCREEN URINE NOT DETECTED; PROPOXYPHENE SCREEN URINE NOT DETECTED; THC SCREEN URINE NOT DETECTED
[2018-06-13 01:26] LABS: BARBITURATE SCREEN URINE DETECTED; BENZODIAZEPINE SCREEN URINE DETECTED; TRICYCLIC ANTIDEPRESSANT SCRN DETECTED
[2018-06-13 08:31] LABS: BLOOD UREA NITROGEN 4 mg/dL (6-20); CREATININE 0.4 mg/dL (0.5-0.9); EST GLOMERULAR FILTRATION RATE > 60 mL/min; GLUCOSE,RANDOM 93 mg/dL (74-109)
--- NOTE | 2018-06-13 09:43 | History & Physical ---
History of Present Illness - Date of Service Date of Service for History & Physical: 06/13/18 - History of Present Illness Admitting Diagnosis: Hypokalemia; dehydration; colitis; COPD; history of seizure disorder History of Present Illness: 53 year old female presented to ED via EMS after feeling that her heart was beating irregularly and noting that her cat was circling around her. Patient states her cat is a therapy cat and only circles around her when she is going to have a seizure. Patient states she saw her PCP on Saturday due to diarrhea x 4 days. Patient was started on Cipro and Flagyl at that time for colitis. Patient states she has continued to have multiple watery diarrhea stools since then and has not been able to tolerate any food due to immediate diarrhea. Patient denies nausea, vomiting, chills, chest pain, shortness of breath, or syncope. Patient also complained of generalized pain from her head to her feet , requesting "1000mg Orogrande". Patient states she was a previous [facility] patient for chronic pain but discharged due to her having a complicated case. Patient is a poor historian and scattered conversation. Oriented to person, place, time , and situation. Patient currently lives in an apartment alone and states she has an aid come in to the home twice per week to help. Past medical history includes seizures, bipolar, trigeminal neuralgia, and 2 ppd smoker. PCP: [facility] ED Course: Head CT: negative for acute process or abnormality Chest x-ray: hyperinflation consistent with COPD, no acute infiltrate, mild dextroscoliosis EKG: NSR rate 94, probable left atrial enlargement, no acute abnormality K 2.9 and given 20mEq K PO and 20mEq K IVPB security monitor 06/13/18: Patient A&O x 4, resting comfortably in bed. Patient has not had any diarrhea since admission, reports that her urine has cleared up as well. Patient tolerating clear liquid diet. Patient continues to complain of generalized pain, requesting O[place]grande for the pain. Patient has been offered Tylenol at this time. K improved this morning. Patient continues to have tangential conversation this morning, likely at her baseline. Travel Screening - Travel/Exposure Within Last 30 Days Have you traveled within the last 30 days?: No - Travel/Exposure Within Last Year Have you traveled outside the [place] in the last year?: No - Additonal Travel Details Have you been exposed to anyone with a communicable illness?: No - Travel Symptoms Symptom Screening: Joint & Muscle Aches, Weakness, Diarrhea Review of Systems Reviewed: No additional complaints except as noted below Constitutional: Reports: As per HPI. Denies: Chills, Fever, Malaise, Night sweats, Weakness, Weight change Eyes: Reports: As per HPI, Eye pain. Denies: Eye discharge, Photophobia, Vision change ENT: Reports: As per HPI, Congestion. Denies: Dental pain, Ear pain, Epistaxis , Hearing loss, Throat pain Respiratory: Reports: As per HPI. Denies: Cough, Dyspnea, Hemoptysis, Stridor, Wheezes Cardiovascular: Reports: As per HPI, Arrhythmia. Denies: Chest pain, Dyspnea on exertion, Edema, Murmurs, Orthopnea, Palpitations, Paroxysmal nocturnal dyspnea, Rheumatic Fever, Syncope Endocrine: Reports: As per HPI, Fatigue. Denies: Heat or cold intolerance, Polydipsia, Polyuria Gastrointestinal: Reports: As per HPI, Abdominal pain, Diarrhea. Denies: Constipation, Hematemesis, Hematochezia, Melena, Nausea, Vomiting Genitourinary: Reports: As per HPI. Denies: Abnormal menses, Discharge, Dyspareunia, Dysuria, Frequency, Hematuria, Incontinence, Retention, Urgency Musculoskeletal: Reports: As per HPI, Arthralgia, Back pain. Denies: Gout, Joint swelling, Myalgia, Neck pain Skin: Reports: As per HPI. Denies: Bruising, Change in color, Change in hair/ nails, Lesions, Pruritus, Rash Neurological: Reports: As per HPI. Denies: Abnormal gait, Confusion, Headache, Numbness, Paresthesias, Seizure, Tingling, Tremors, Vertigo, Weakness Psychiatric: Reports: As per HPI. Denies: Anxiety, Auditory hallucinations, Depression, Homicidal thoughts, Suicidal thoughts, Visual hallucinations Hematological/Lymphatic: Reports: As per HPI. Denies: Anemia, Blood Clots, Easy bleeding, Easy bruising, Swollen glands Past Medical History - SOCIAL HISTORY Smoking Status: Current every day smoker Alcohol Use: None Drug Use: Heavy Drug Use Detail:: Marijuana - RESPIRATORY Hx Respiratory Disorders: Yes Hx Asthma: Yes (controlled for now does inhalers and neb txs) Hx Bronchitis: Yes (last winter) Hx COPD: Yes - CARDIOVASCULAR Hx Cardio Disorders: Yes Hx Chest Pain: Yes (states anxiety) Hx Hypotension: Yes (states gets real low) - NEURO Hx Neuro Disorders: Yes Hx of Migraines: Yes (trigeminal neuralgia) Hx Seizures: Yes (pt unsure of when last seizure was.) Comment:: daily headaches sees neurologist states grand mal seizures - GI Hx GI Disorders: Yes Hx Abdominal Pain: Yes Hx Reflux: Yes Hx Nausea/Vomiting: Yes Hx Wt Loss/Wt Gain: Yes - Hx Genitourinary Disorders: No - ENDOCRINE Hx Endocrine Disorders: No Hx Diabetes: No Hx Thyroid Disease: No - MUSCULOSKELETAL Hx Musculoskeletal Disorders: Yes Hx Arthritis: Yes Hx Fibromyalgia: Yes (dx in 20's) - PSYCH Hx Psych Problems: Yes Hx Anxiety: Yes Hx Depression: Yes Comment:: pt very hard to get PAT info and med list from, uncooperative. - HEMATOLOGY/ONCOLOGY Hx Hematology/Oncology Disorders: Yes Hx Bruising: Yes Hx Unexplained Bleeding: No (denies) Family Medical History Any Significant Family History?: Yes Hx HTN: Father H&P Meds/Allergies - Allergies Allergies: Allergies Allergy/AdvReac Type Severity Reaction Status Date / Time ketorolac tromethamine Allergy HIVES Verified 06/12/18 13:08 [From Toradol] citalopram hydrobromide AdvReac seizure Verified 06/12/18 13:08 [From Celexa] - Home Medications Home Medications Medication Instructions Recorded Confirmed Last Taken Ciprofloxacin HCl [Cipro] 500 mg PO Q12HR 06/12/18 06/12/18 Unknown Clonazepam 1 mg PO TID 06/12/18 06/12/18 Unknown Lamotrigine [Lamictal] 300 mg PO BID 06/12/18 06/12/18 Unknown Metronidazole 500 mg PO TID 06/12/18 06/12/18 Unknown Multivitamin [Multi-Vitamin Daily] 1 each PO DAILY 06/12/18 06/12/18 Unknown Oxcarbazepine [Trileptal] 300 mg PO BID 06/12/18 06/12/18 Unknown Potassium Chloride 10 meq PO DAILY 06/12/18 06/12/18 Unknown Quetiapine Fumarate [Seroquel] 100 mg PO QHS 06/12/18 06/12/18 Unknown Zonisamide 400 mg PO QHS 06/12/18 06/12/18 Unknown - Active Medications Active Medications: Current Medications Acetaminophen (Tylenol 325mg) 650 mg PO Q4H PRN PRN Reason: PAIN - MILD(1-4)/FEVER Last Admin: 06/13/18 06:34 Dose: 650 mg Acetaminophen/Butalbital/Caffeine (Fioricet) 2 each PO TID [facility] Last Admin: 06/12/18 21:23 Dose: 2 each Al Hydroxide/Mg Hydroxide (Maalox) 30 ml PO Q4H PRN PRN Reason: GI UPSET Albuterol Sulfate (Ventolin Hfa) 2 puff INH Q4H PRN PRN Reason: SHORTNESS OF BREATH Alprazolam (Xanax) 1 mg PO 1300,1900 [facility] Last Admin: 06/12/18 21:09 Dose: 1 mg Ciprofloxacin (Cipro) 500 mg PO Q12HR [facility] Last Admin: 06/12/18 21:22 Dose: 500 mg Clonazepam (Klonopin) 1 mg PO TID [facility] Last Admin: 06/12/18 21:22 Dose: 1 mg Sodium Chloride () 1,000 mls @ 125 mls/hr IV .Q8H PRN PRN Reason: LARGE VOLUME IV Last Infusion: 06/13/18 06:31 Dose: 0 mls/hr Lamotrigine (Lamictal) 300 mg PO BID [facility] Last Admin: 06/12/18 21:23 Dose: 300 mg Metronidazole (Flagyl) 500 mg PO TID [facility] Last Admin: 06/12/18 21:22 Dose: 500 mg Multivitamins/Minerals (Centrum) 1 tab PO DAILY [facility] Nicotine (Nicotine 21mg) 1 patch TD Q24H [facility] Last Admin: 06/12/18 21:09 Dose: 1 patch Non-Formulary Misc (Zonisamide [ Zonisamide] 400 Mg) 400 mg PO QHS [facility] Last Admin: 06/12/18 21:28 Dose: 400 mg Patient Own Med: (Oxcarbazepine 300 Mg) 1 each PO BID [facility] Last Admin: 06/12/18 21:28 Dose: 1 each Potassium Chloride (Klor-Con) 10 meq PO DAILY [facility] Quetiapine Fumarate (Seroquel) 100 mg PO QHS [facility] Last Admin: 06/12/18 21:22 Dose: 100 mg Simvastatin (Zocor) 20 mg PO DAILY [facility] Physical Exam - Vital Signs Vital Signs: Vital Signs - Last 24 Hrs Temp Pulse Pulse Pulse Resp BP BP 06/13/18 08:31 18 06/13/18 07:00 98.1 F 96 H 18 119/85 06/12/18 20:00 98.0 F 89 20 105/80 06/12/18 19:07 98 H 18 06/12/18 15:45 98.2 F 100 H 18 135/85 06/12/18 15:18 100 H 16 118/73 06/12/18 13:42 100 H 16 121/81 06/12/18 13:02 98.7 F 99 H 16 136/90 Pulse Ox 06/13/18 08:31 06/13/18 07:00 96 06/12/18 20:00 96 06/12/18 19:07 06/12/18 15:45 98 06/12/18 15:18 96 06/12/18 13:42 97 06/12/18 13:02 97 - General General Appearance: Alert, Oriented x3, Cooperative, No acute distress - Head Head exam: Normal inspection - Eye Eye exam: Normal appearance, PERRL, EOMI. negative: Conjunctival injection, Nystagmus Pupils: Normal accommodation - ENT ENT exam: Normal exam, Mucous membranes moist, Normal orophraynx Ear exam: Normal external inspection. negative: External canal tenderness Nasal Exam: negative: Discharge, Sinus tenderness Mouth exam: Normal external inspection, Tongue normal Teeth exam: Normal inspection. negative: Dental caries Throat exam: Normal inspection. negative: Tonsillar erythema, Tonsillar exudate - Neck Neck exam: Normal inspection, Full ROM. negative: Lymphadenopathy, Meningismus , Tenderness - Respiratory Respiratory exam: Normal lung sounds bilaterally, Decreased breath sounds, Prolonged expiratory. negative: Accessory muscle use, Chest wall tenderness, Respiratory distress, Stridor, Wheezes - Cardiovascular Cardiovascular Exam: Regular rate, Normal rhythm, Normal heart sounds Peripheral Pulses: 2+: Radial (R), Radial (L), Dorsalis Pedis (R), Dorsalis Pedis (L) - GI/Abdominal GI/Abdominal exam: Soft, Hyperactive bowel sounds. negative: Distended, Guarding, Tenderness - Rectal Rectal exam: Deferred - exam: Deferred - Extremities Extremities exam: Normal inspection, Full ROM, Normal capillary refill. negative: Calf tenderness, Pedal edema, Tenderness - Back Back exam: Reports: Normal inspection, Full ROM. Denies: CVA tenderness (R), CVA tenderness (L), Muscle spasm, Rash noted, Tenderness - Neurological Neurological exam: Alert, CN II-XII intact, Normal gait, Oriented X3. negative : Motor sensory deficit - Psychiatric Psychiatric exam: Anxious, Normal affect, Normal mood, Other (tangential conversation) - Skin Skin exam: Dry, Intact, Normal color, Warm Results - Labs Result Diagrams: 06/12/18 12:40 06/13/18 08:00 Labs Last 24 Hours: Laboratory Results - last 24 hr 06/12/18 06/12/18 06/12/18 12:40 12:40 12:40 WBC 7.9 RBC 4.40 Hgb 14.9 Hct 42.2 MCV 95.9 MCH 33.9 H MCHC 35.3 RDW 14.6 H Plt Count 362 MPV 9.6 Gran % 74.7 Lymphocytes % 20.1 Monocytes % 4.7 Eosinophils % 0.1 Basophils % 0.4 PT 10.3 INR 1.0 APTT 29.3 D-Dimer 0.59 Sodium 133 L Potassium 3.0 L Chloride 96 L Carbon Dioxide 23.0 Anion Gap 14.0 BUN 6 Creatinine 0.4 L Estimated GFR > 60 Random Glucose 143 H Calcium 9.1 Total Bilirubin 0.30 AST 18 ALT 25 Alkaline Phosphatase 187 H Troponin T < 0.010 NT-Pro-B Natriuret Pep 41.50 Total Protein 6.8 Albumin 4.4 Globulin 2.4 Albumin/Globulin Ratio 1.8 TSH 1.06 Urine Color Urine Appearance Urine pH Ur Specific [place] Urine Protein Urine Glucose (UA) Urine Ketones Urine Blood Urine Nitrite Urine Bilirubin Urine Urobilinogen Ur Leukocyte Esterase Stool Occult Blood Stool for White Cells Urine Opiates Screen Ur Oxycodone Screen Urine Methadone Screen Ur Propoxyphene Screen Ur Barbiturates Screen Tricyclics Screen Ur Phencyclidine Scrn Ur Amphetamine Screen U Methamphetamines Scrn U Benzodiazepines Scrn Urine Cocaine Screen U Marijuana (THC) Screen Ethyl Alcohol 06/12/18 06/12/18 06/12/18 16:17 16:27 16:27 WBC RBC Hgb Hct MCV MCH MCHC RDW Plt Count MPV Gran % Lymphocytes % Monocytes % Eosinophils % Basophils % PT INR APTT D-Dimer Sodium Potassium Chloride Carbon Dioxide Anion Gap BUN Creatinine Estimated GFR Random Glucose Calcium Total Bilirubin AST ALT Alkaline Phosphatase Troponin T NT-Pro-B Natriuret Pep Total Protein Albumin Globulin Albumin/Globulin Ratio TSH Urine Color Urine Appearance Urine pH Ur Specific [place] Urine Protein Urine Glucose (UA) Urine Ketones Urine Blood Urine Nitrite Urine Bilirubin Urine Urobilinogen Ur Leukocyte Esterase Stool Occult Blood Cancelled Stool for White Cells Cancelled Urine Opiates Screen Ur Oxycodone Screen Urine Methadone Screen Ur Propoxyphene Screen Ur Barbiturates Screen Tricyclics Screen Ur Phencyclidine Scrn Ur Amphetamine Screen U Methamphetamines Scrn U Benzodiazepines Scrn Urine Cocaine Screen U Marijuana (THC) Screen Ethyl Alcohol 0.010 06/12/18 06/13/18 06/13/18 23:00 01:23 01:24 WBC RBC Hgb Hct MCV MCH MCHC RDW Plt Count MPV Gran % Lymphocytes % Monocytes % Eosinophils % Basophils % PT INR APTT D-Dimer Sodium 136 Potassium 3.7 Chloride 107 Carbon Dioxide 20.0 L Anion Gap 9.0 BUN 4 L Creatinine 0.4 L Estimated GFR > 60 Random Glucose 94 Calcium 8.4 L Total Bilirubin 0.30 AST 14 ALT 18 Alkaline Phosphatase 148 H Troponin T NT-Pro-B Natriuret Pep Total Protein 5.5 L Albumin 3.5 L Globulin 2.0 Albumin/Globulin Ratio 1.8 TSH Urine Color Yellow Urine Appearance Clear Urine pH 7.0 Ur Specific [place] 1.010 Urine Protein Negative Urine Glucose (UA) Negative Urine Ketones Negative Urine Blood Negative Urine Nitrite Negative Urine Bilirubin Negative Urine Urobilinogen 0.2 Ur Leukocyte Esterase Negative Stool Occult Blood Stool for White Cells Urine Opiates Screen Not detected Ur Oxycodone Screen Not detected Urine Methadone Screen Not detected Ur Propoxyphene Screen Not detected Ur Barbiturates Screen Detected Tricyclics Screen Detected Ur Phencyclidine Scrn Not detected Ur Amphetamine Screen Not detected U Methamphetamines Scrn Not detected U Benzodiazepines Scrn Detected Urine Cocaine Screen Not detected U Marijuana (THC) Screen Not detected Ethyl Alcohol 06/13/18 08:00 WBC RBC Hgb Hct MCV MCH MCHC RDW Plt Count MPV Gran % Lymphocytes % Monocytes % Eosinophils % Basophils % PT INR APTT D-Dimer Sodium 140 Potassium 3.7 Chloride 109 H Carbon Dioxide 19.0 L Anion Gap 12.0 BUN 4 L Creatinine 0.4 L Estimated GFR > 60 Random Glucose 93 Calcium 8.7 Total Bilirubin AST ALT Alkaline Phosphatase Troponin T NT-Pro-B Natriuret Pep Total Protein Albumin Globulin Albumin/Globulin Ratio TSH Urine Color Urine Appearance Urine pH Ur Specific [place] Urine Protein Urine Glucose (UA) Urine Ketones Urine Blood Urine Nitrite Urine Bilirubin Urine Urobilinogen Ur Leukocyte Esterase Stool Occult Blood Stool for White Cells Urine Opiates Screen Ur Oxycodone Screen Urine Methadone Screen Ur Propoxyphene Screen Ur Barbiturates Screen Tricyclics Screen Ur Phencyclidine Scrn Ur Amphetamine Screen U Methamphetamines Scrn U Benzodiazepines Scrn Urine Cocaine Screen U Marijuana (THC) Screen Ethyl Alcohol VTE H&P Assessment - Risk for VTE Risk for VTE: No Risk Level: Low Risk Assessment Date: 06/13/18 Risk Assessment Time: 09:00 VTE Orders Placed or Will Be Placed: No VTE Reason for No Prophylaxis: Not Indicated Plan - Detailed Diagnosis and Plan (1) Colitis Current Visit: Yes Status: Acute Base Code: K52.9 - NONINFECTIVE GASTROENTERITIS AND COLITIS, UNSPECIFIED Comment: 06/13/18: Patient was diagnosed with colitis by PCP on Saturday. Started on Cipro and Flagyl. Continues to have frequent watery stools daily. -Continue Cipro BID and Flagyl q8h -Clear liquid diet -Patient has not had BM since admission (2) Dehydration Current Visit: Yes Status: Acute Base Code: E86.0 - DEHYDRATION Comment: 06/13/18: Due to severe diarrhea, patient presents with dehydration as well. -0.9%NS @ 125ml/hr -Clear liquid diet, to advance as tolerated (3) Hypokalemia Current Visit: Yes Status: Acute Base Code: E87.6 - HYPOKALEMIA Comment: 06/13/18: K 2.9 upon admission -Replaced with 20mEq K PO and 20mEq K IVPB -K 3.7 this morning -Will continue to encourage increasing dietary intake of potassium. No further episodes of diarrhea since admission (4) DVT prophylaxis Current Visit: Yes Status: Acute Base Code: [id number] - Comment: 06/13/18: Low risk due to patient ambulating in room. -Encourage ambulation in room, no need for further prophylaxis at this time (5) Full code status Current Visit: Yes Status: Acute Base Code: Z78.9 - OTHER SPECIFIED HEALTH STATUS Comment: 06/13/18: Patient is a full code this admission
--- NOTE | 2018-06-13 09:55 | Discharge Summary ---
Providers Discharge Summary Date: 06/13/18 Date of admission: 06/12/18 15:27 Expected Date of Discharge: 06/13/18 Attending physician: NATALIA LEMONS Primary care physician: DELFINO MEJIA D.O. Consults: Consult Orders 06/12/18 18:07 Consult - Case Management Now Comment: Request for social service consult. Reason For Exam: Mental Health Physical Exam - Vital Signs Vital Signs: Vital Signs - Last 24 Hrs Temp Pulse Pulse Pulse Resp BP BP 06/13/18 08:31 18 06/13/18 07:00 98.1 F 96 H 18 119/85 06/12/18 20:00 98.0 F 89 20 105/80 06/12/18 19:07 98 H 18 06/12/18 15:45 98.2 F 100 H 18 135/85 06/12/18 15:18 100 H 16 118/73 06/12/18 13:42 100 H 16 121/81 06/12/18 13:02 98.7 F 99 H 16 136/90 Pulse Ox 06/13/18 08:31 06/13/18 07:00 96 06/12/18 20:00 96 06/12/18 19:07 06/12/18 15:45 98 06/12/18 15:18 96 06/12/18 13:42 97 06/12/18 13:02 97 - General General Appearance: Alert, Oriented x3, Cooperative, No acute distress - Head Head exam: Normal inspection - Eye Eye exam: Normal appearance, PERRL, EOMI. negative: Conjunctival injection, Nystagmus Pupils: Normal accommodation - ENT ENT exam: Normal exam, Mucous membranes moist, Normal orophraynx Ear exam: Normal external inspection. negative: External canal tenderness Nasal Exam: negative: Discharge, Sinus tenderness Mouth exam: Normal external inspection, Tongue normal Teeth exam: Normal inspection. negative: Dental caries Throat exam: Normal inspection. negative: Tonsillar erythema, Tonsillar exudate - Neck Neck exam: Normal inspection, Full ROM. negative: Lymphadenopathy, Meningismus , Tenderness - Respiratory Respiratory exam: Normal lung sounds bilaterally, Decreased breath sounds, Prolonged expiratory. negative: Accessory muscle use, Chest wall tenderness, Respiratory distress, Stridor, Wheezes - Cardiovascular Cardiovascular Exam: Regular rate, Normal rhythm, Normal heart sounds Peripheral Pulses: 2+: Radial (R), Radial (L), Dorsalis Pedis (R), Dorsalis Pedis (L) - GI/Abdominal GI/Abdominal exam: Soft, Hyperactive bowel sounds. negative: Distended, Guarding, Tenderness - Rectal Rectal exam: Deferred - exam: Deferred - Extremities Extremities exam: Normal inspection, Full ROM, Normal capillary refill. negative: Calf tenderness, Pedal edema, Tenderness - Back Back exam: Reports: Normal inspection, Full ROM. Denies: CVA tenderness (R), CVA tenderness (L), Muscle spasm, Rash noted, Tenderness - Neurological Neurological exam: Alert, CN II-XII intact, Normal gait, Oriented X3. negative : Motor sensory deficit - Psychiatric Psychiatric exam: Anxious, Normal affect, Normal mood, Other (tangential conversation) - Skin Skin exam: Dry, Intact, Normal color, Warm Hospitalization - Hospitalization Admission Diagnosis: Hypokalemia; dehydration; colitis; COPD; history of seizure disorder - Problem List/Discharge Diagnosis (1) Colitis Current Visit: Yes Status: Acute Base Code: K52.9 - NONINFECTIVE GASTROENTERITIS AND COLITIS, UNSPECIFIED Comment: 06/13/18: Patient was diagnosed with colitis by PCP on Saturday. Started on Cipro and Flagyl. Continues to have frequent watery stools daily. -Continue Cipro BID and Flagyl q8h, will continue upon dc as previously ordered -Clear liquid diet -Patient has not had BM since admission (2) Dehydration Current Visit: Yes Status: Acute Base Code: E86.0 - DEHYDRATION Comment: 06/13/18: Due to severe diarrhea, patient presents with dehydration as well. -Tolerating PO diet -Urine has cleared in appearance at this time -No further episodes of diarrhea since admission (3) Hypokalemia Current Visit: Yes Status: Acute Base Code: E87.6 - HYPOKALEMIA Comment: 06/13/18: K 2.9 upon admission -Replaced with 20mEq K PO and 20mEq K IVPB -K 3.7 this morning -Will continue to encourage increasing dietary intake of potassium. No further episodes of diarrhea since admission (4) DVT prophylaxis Current Visit: Yes Status: Acute Base Code: [id number] - Comment: 06/13/18: Low risk due to patient ambulating in room. -Encourage ambulation in room, no need for further prophylaxis upon dc (5) Full code status Current Visit: Yes Status: Acute Base Code: Z78.9 - OTHER SPECIFIED HEALTH STATUS Comment: 06/13/18: Patient is a full code this admission - Hospitalization Course Disposition: Home, Self-Care Hospital Course: 53 year old female presented to ED via EMS after feeling that her heart was beating irregularly and noting that her cat was circling around her. Patient states her cat is a therapy cat and only circles around her when she is going to have a seizure. Patient states she saw her PCP on Saturday due to diarrhea x 4 days. Patient was started on Cipro and Flagyl at that time for colitis. Patient states she has continued to have multiple watery diarrhea stools since then and has not been able to tolerate any food due to immediate diarrhea. Patient denies nausea, vomiting, chills, chest pain, shortness of breath, or syncope. Patient also complained of generalized pain from her head to her feet , requesting "1000mg [place]". Patient states she was a previous [facility] patient for chronic pain but discharged due to her having a complicated case. Patient is a poor historian and scattered conversation. Oriented to person, place, time , and situation. Patient currently lives in an apartment alone and states she has an aid come in to the home twice per week to help. Past medical history includes seizures, bipolar, trigeminal neuralgia, and 2 ppd smoker. PCP: Jackie ED Course: Head CT: negative for acute process or abnormality Chest x-ray: hyperinflation consistent with COPD, no acute infiltrate, mild dextroscoliosis EKG: NSR rate 94, probable left atrial enlargement, no acute abnormality K 2.9 and given 20mEq K PO and 20mEq K IVPB rn cardiac rehab 06/13/18: Patient A&O x 4, resting comfortably in bed. Patient has not had any diarrhea since admission, reports that her urine has cleared up as well. Patient tolerating clear liquid diet. Patient continues to complain of generalized pain, requesting [place] for the pain. Patient has been offered Tylenol at this time. K improved this morning. Patient continues to have tangential conversation this morning, likely at her baseline. Patient to follow-up with her PCP for further management of colitis and her complaints of chronic pain. 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 Abnormal Labs: Abnormal Lab Results 06/12/18 06/12/18 06/12/18 Range/Units 12:40 12:40 23:00 MCH 33.9 H (27-33) pg RDW 14.6 H (11.5-14.5) % Sodium 133 L (136-145) mmol/L Potassium 3.0 L (3.4-4.5) mmol/L Chloride 96 L (98-107) mmol/L Carbon Dioxide 20.0 L (22-29) mmol/L BUN 4 L (6-20) mg/dL Creatinine 0.4 L 0.4 L (0.5-0.9) mg/dL Random Glucose 143 H (74-109) mg/dL Calcium 8.4 L (8.6-10.0) mg/dL Alkaline Phosphatase 187 H 148 H (35-104) U/L Total Protein 5.5 L (6.6-8.7) g/dL Albumin 3.5 L (4.0-5.0) g/dL 06/13/18 Range/Units 08:00 MCH (27-33) pg RDW (11.5-14.5) % Sodium (136-145) mmol/L Potassium (3.4-4.5) mmol/L Chloride 109 H (98-107) mmol/L Carbon Dioxide 19.0 L (22-29) mmol/L BUN 4 L (6-20) mg/dL Creatinine 0.4 L (0.5-0.9) mg/dL Random Glucose (74-109) mg/dL Calcium (8.6-10.0) mg/dL Alkaline Phosphatase (35-104) U/L Total Protein (6.6-8.7) g/dL Albumin (4.0-5.0) g/dL Condition at Discharge: (1) Good VTE Discharge VTE Reason For No Overlap Therapy: Not Indicated Discharge Medications - Discharge Medications Home Medications: Ambulatory Orders Albuterol Sulfate [Proair Hfa] 2 puff INH Q4H PRN 04/25/14 [Last Taken 1 Day Ago ~05/03/17] Butalb/Acetaminophen/Caffeine [Yfzkxy-Zomcajak-Jyya 50-325-40] 2 tab PO TID [Last Taken 1 Day Ago ~05/03/17] Simvastatin 20 mg PO DAILY 04/25/14 [Last Taken 1 Day Ago ~05/03/17] Ciprofloxacin HCl [Cipro] 500 mg PO Q12HR 06/12/18 [Last Taken Unknown] Clonazepam 1 mg PO TID 06/12/18 [Last Taken Unknown] Lamotrigine [Lamictal] 300 mg PO BID 06/12/18 [Last Taken Unknown] Metronidazole 500 mg PO TID 06/12/18 [Last Taken Unknown] Multivitamin [Multi-Vitamin Daily] 1 each PO DAILY 06/12/18 [Last Taken Unknown] Oxcarbazepine [Trileptal] 300 mg PO BID 06/12/18 [Last Taken Unknown] Potassium Chloride 10 meq PO DAILY 06/12/18 [Last Taken Unknown] Quetiapine Fumarate [Seroquel] 100 mg PO QHS 06/12/18 [Last Taken Unknown] Zonisamide 400 mg PO QHS 06/12/18 [Last Taken Unknown] Alprazolam 1 mg PO BID 06/13/18 [Last Taken Unknown] Discharge Plan - Discharge Instructions Activity at Discharge: Increase Activity as Tolerated Diet at Discharge: Advance to Usual Diet Additional Instructions: -Slowly advance your diet as tolerating, starting off with bland foods -Continue drinking lots of fluids -Continue the Cipro and Flagyl until they are finished -Follow-up with Dr. Mejia in 2 weeks Quality Measures - Quality Measures Quality Measures: Documentation of Current Medications in Medical Record, Screening for High Blood Pressure and F/U Documented - Current Medications Quality Measure: Measure #130: Documentation of Current Medications Documentation of Current Medications: <Current Medications Documented/Reviewed> [G8427] - Blood Pressure Screening Quality Measure: Screening for High Blood Pressure and Follow-Up Documented Does Patient Have Any of the Following: No Blood Pressure Classification: Normal BP Reading Systolic Measurement: 118 Diastolic Measurement: 73 Screening for High Blood Pressure: < Normal BP, F/U Not Required > [G8783] - Elder Abuse Suspicion Index EASI Reference Information: Robert MEYERS, Meenakshi Cannon, Emily D, Helen Aldana.Development and validation of a tool to assist physicians identification of elder abuse: The Elder Abuse Suspicion Index (EASI ). Journal of Elder Abuse and Neglect, 2008; 20 (3): 276-300.
[2018-06-13] MEDS ORDERED: POTASSIUM CHLORIDE 10 MEQ TAB PO SCH (10:00)
[2018-06-13] MEDS ORDERED: MULTIVITAMINS/MINERALS TABLET PO SCH (10:00)
[2018-06-13] MEDS ORDERED: SIMVASTATIN 20 MG TABLET PO SCH (10:00)
[2018-06-13] MEDS ORDERED: Non-Formulary MISC (Escitalopram Oxalate [Lexapro] 20 MG) PO SCH (10:00)
[2018-06-13] MEDS: BUTALB/ACETAMINOPHEN/CAFFEINE TABLET PO SCH (10:11)
[2018-06-13] MEDS: CLONAZEPAM 1MG TABLET PO SCH (10:12)
[2018-06-13] MEDS: CIPROFLOXACIN HCL 500 MG TABLET PO SCH (10:12)
[2018-06-13] MEDS: LAMOTRIGINE 100 MG TABLET PO SCH (10:12)
[2018-06-13] MEDS: METRONIDAZOLE 250 MG TABLET PO SCH (10:12)
[2018-06-13] MEDS: OXCARBAZEPINE 300 MG PO SCH (10:13)
--- NOTE | 2018-06-14 07:23 | RADIOLOGY REPORT ---
EXAM: CHEST 2 VIEWS HISTORY: SEIZURE, HEADACHE. TECHNIQUE: AP upright and lateral views. COMPARISON: Two-view chest, 05/15/13. FINDINGS: Heart is not enlarged. Lungs again appear hyperinflated suggesting underlying COPD. No definite acute infiltrate is identified and no pleural effusion or pneumothorax evident. Thoracic curve to the right and a thoracolumbar curve to the left. IMPRESSION: 1. LUNGS APPEAR HYPERINFLATED, WHICH MAY REPRESENT UNDERLYING COPD. 2. MILD SCOLIOSIS. 3. NO ACUTE INFILTRATE EVIDENT. JOB NUMBER: [id number] [facility]
--- NOTE | 2018-06-14 07:25 | CT SCAN REPORT ---
EXAM: CT SCAN HEAD WO CONTRAST HISTORY: SEIZURE HISTORY, HEADACHE. TECHNIQUE: Axial CT scan of the head performed without IV contrast. COMPARISON: Head CT dated 02/09/18. FINDINGS: No definite acute intracranial hemorrhage identified. No focal mass effect or midline shift apparent. No definite acute infarct or intracranial mass lesion is seen. Visualized paranasal sinuses and mastoids all appear essentially clear. Mild deviation of the nasal septum to the left. IMPRESSION: EMERGENCY NONCONTRAST HEAD CT APPEARS ESSENTIALLY NEGATIVE WITH NO DEFINITE ACUTE INTRACRANIAL HEMORRHAGE OR FOCAL MASS EFFECT IDENTIFIED. JOB [facility]BER: [id number] [facility]
== END 2018-06-13 11:25 | disposition home or self-care (01) ==
LOC: ER 12:54 → MEDSURG 15:27
PROVIDERS: ADMIT Internal Medicine; ATTEND Internal Medicine
DX: K52.9 Noninfective gastroenteritis and colitis, unspecified (principal); E86.0 Dehydration; E87.6 Hypokalemia; J44.9 Chronic obstructive pulmonary disease, unspecified; G40.909 Epilepsy, unspecified, not intractable, without status epilepticus; G50.0 Trigeminal neuralgia; J45.909 Unspecified asthma, uncomplicated; I95.9 Hypotension, unspecified; M19.90 Unspecified osteoarthritis, unspecified site; M79.7 Fibromyalgia; K21.9 Gastro-esophageal reflux disease without esophagitis; F17.210 Nicotine dependence, cigarettes, uncomplicated; F12.90 Cannabis use, unspecified, uncomplicated; Z86.73 Personal history of transient ischemic attack (TIA), and cerebral infarction without residual deficits
CPT/HCPCS: 85025; 85730; 85610; 80305; 80048; 80053; 81003; 84443; 84484; 85379; 83880; 71046; 70450; 93005; G0378 ×2; G0480; 80320; 96365; 99220; 99285

== ENCOUNTER 2018-11-10 15:31 | Emergency (ER) | payer MEDICARE, MEDICAID ==
[2018-11-10 16:36] LABS: BASO % 0.2 % (0-6); EOS % 1.7 % (0-6); GRAN % 60.5 % (47-80); HEMATOCRIT 41.6 % (35.0-47.0); HEMOGLOBIN 14.5 gm/dl (11.6-16.0); LYMPH % 33.5 % (16-45); MEAN CELL VOLUME 97.2 fl (81-97); MEAN CORPUSCULAR HEMOGLOBIN 33.9 pg (27-33); MEAN CORPUSCULAR HGB CONC 34.9 g/dl (32-36); MEAN PLATELET VOLUME 11.3 fl (7.4-10.4); MONO % 4.1 % (0-9); PLATELET COUNT 161 K/uL (130-400); RED BLOOD COUNT 4.28 M/uL (3.80-5.40); RED CELL DISTRIBUTION WIDTH 14.4 % (11.5-14.5); WHITE BLOOD COUNT W/O DIFF 8.3 K/uL (4.2-12.2)
[2018-11-10 16:53] LABS: BLOOD UREA NITROGEN 8 mg/dL (6-20); CREATININE 0.5 mg/dL (0.5-0.9); EST GLOMERULAR FILTRATION RATE > 60 mL/min; TOTAL PROTEIN 6.6 g/dL (6.6-8.7)
[2018-11-10 16:55] LABS: GLUCOSE,RANDOM 85 mg/dL (74-109)
[2018-11-10 16:58] LABS: ALB/GLOB RATIO 1.6 (1.1-1.8); ALBUMIN 4.1 g/dL (4.0-5.0); ALKALINE PHOSPHATASE 154 U/L (35-104); ALT/SGPT 17 U/L (<33); AST/SGOT 18 U/L (10.0-35.0)
[2018-11-10 17:49] LABS: URINE APPEARANCE CLEAR; URINE BILIRUBIN NEGATIVE (NEGATIVE); URINE BLOOD NEGATIVE (NEGATIVE); URINE COLOR YELLOW; URINE GLUCOSE (UA) NEGATIVE (NEGATIVE); URINE KETONE NEGATIVE (NEGATIVE); URINE LEUKOCYTE ESTERASE TRACE (NEGATIVE); URINE NITRITE NEGATIVE (NEGATIVE); URINE PROTEIN NEGATIVE (NEGATIVE); URINE UROBILINOGEN 0.2 E.U./dL (0.20 - 1.00)
[2018-11-10] MEDS ORDERED: ACETAMINOPHEN 500 MG TABLET PO ONE (17:51)
[2018-11-10 17:58] LABS: URINE BACTERIA NONE SEEN; URINE RBC NONE SEEN (NONE SEEN); URINE WBC 0 - 2 (0-2/hpf)
[2018-11-10 17:59] LABS: AMPHETAMINE SCREEN URINE NOT DETECTED; BARBITURATE SCREEN URINE DETECTED; BENZODIAZEPINE SCREEN URINE DETECTED; COCAINE SCREEN URINE NOT DETECTED; METHADONE SCREEN URINE NOT DETECTED; METHAMPHETAMINE SCREEN NOT DETECTED; OPIATE SCREEN URINE NOT DETECTED; OXYCODONE SCREEN URINE DETECTED; PHENCYCLIDINE SCREEN URINE NOT DETECTED; PROPOXYPHENE SCREEN URINE NOT DETECTED; THC SCREEN URINE DETECTED; TRICYCLIC ANTIDEPRESSANT SCRN DETECTED
[2018-11-10] MEDS ORDERED: LORAZEPAM 2 MG/ML VIAL IM ONE ×2 (18:14→21:58)
--- NOTE | 2018-11-10 19:10 | Emergency Department Record ---
History of Present Illness - General Chief Complaint: Suicidal thoughts Stated Complaint: SUICIDAL IDEATION Time Seen by Provider: 11/10/18 16:12 Source: Patient, Police Mode of Arrival: with superintendent police. Limitations: No limitations Travel/Exposure to [place] Within 21 Days of Symptoms: No - History of Present Illness Initial Comments: pt brought in by police w a petition because she had told her pcps office that she was going to cut her head off. she admitted saying that and she also stated that she would rather then continue to live in pain. MD Complaint: Suicidal ideation -: Year(s) Associated Psychiatric Symptoms: Suicidal ideation History of same: Yes Quality: Constant Improves With: Other Context: Significant life stressor Associated Symptoms: Headache, Vomiting Treatments Prior to Arrival: None If Self Harm: Admits thoughts of self harm Details of Plan: Denies plan. - [place] Coma Scale Eye Response: (4) Open spontaneously Motor Response: (6) Obeys commands Verbal Response: (5) Oriented [place] Total: 15 - Related Data Allergies Allergy/AdvReac Type Severity Reaction Status Date / Time ketorolac tromethamine Allergy HIVES Verified 06/12/18 13:08 [From Toradol] citalopram hydrobromide AdvReac seizure Verified 06/12/18 13:08 [From Celexa] Review of Systems Reviewed: No additional complaints except as noted below Constitutional: Reports: As per HPI. Denies: Chills, Fever, Malaise, Night sweats, Weakness, Weight change Eyes: Reports: As per HPI. Denies: Eye discharge, Eye pain, Photophobia, Vision change ENT: Reports: As per HPI. Denies: Congestion, Dental pain, Ear pain, Epistaxis , Hearing loss, Throat pain Respiratory: Reports: As per HPI. Denies: Cough, Dyspnea, Hemoptysis, Stridor, Wheezes Cardiovascular: Reports: As per HPI. Denies: Arrhythmia, Chest pain, Dyspnea on exertion, Edema, Murmurs, Orthopnea, Palpitations, Paroxysmal nocturnal dyspnea, Rheumatic Fever, Syncope Endocrine: Reports: As per HPI. Denies: Fatigue, Heat or cold intolerance, Polydipsia, Polyuria Gastrointestinal: Reports: As per HPI. Denies: Abdominal pain, Constipation, Diarrhea, Hematemesis, Hematochezia, Melena, Nausea, Vomiting Genitourinary: Reports: As per HPI. Denies: Abnormal menses, Discharge, Dyspareunia, Dysuria, Frequency, Hematuria, Incontinence, Retention, Urgency Musculoskeletal: Reports: As per HPI, Back pain. Denies: Arthralgia, Gout, Joint swelling, Myalgia, Neck pain Skin: Reports: As per HPI. Denies: Bruising, Change in color, Change in hair/ nails, Lesions, Pruritus, Rash Neurological: Reports: As per HPI. Denies: Abnormal gait, Confusion, Headache, Numbness, Paresthesias, Seizure, Tingling, Tremors, Vertigo, Weakness Psychiatric: Reports: As per HPI, Suicidal thoughts. Denies: Anxiety, Auditory hallucinations, Depression, Homicidal thoughts, Visual hallucinations Hematological/Lymphatic: Reports: As per HPI. Denies: Anemia, Blood Clots, Easy bleeding, Easy bruising, Swollen glands Past Medical History - SOCIAL HISTORY Smoking Status: Current every day smoker Alcohol Use: None Drug Use: Heavy Drug Use Detail:: Marijuana - RESPIRATORY Hx Respiratory Disorders: Yes Hx Asthma: Yes (controlled for now does inhalers and neb txs) Hx Bronchitis: Yes (last winter) Hx COPD: Yes - CARDIOVASCULAR Hx Cardio Disorders: Yes Hx Chest Pain: Yes (states anxiety) Hx Hypotension: Yes (states gets real low) - NEURO Hx Neuro Disorders: Yes Hx of Migraines: Yes (trigeminal neuralgia) Hx Seizures: Yes (pt unsure of when last seizure was.) Comment:: daily headaches sees neurologist states grand mal seizures - GI Hx GI Disorders: Yes Hx Abdominal Pain: Yes Hx Reflux: Yes Hx Nausea/Vomiting: Yes Hx Wt Loss/Wt Gain: Yes - Hx Genitourinary Disorders: No - ENDOCRINE Hx Endocrine Disorders: No Hx Diabetes: No Hx Thyroid Disease: No - MUSCULOSKELETAL Hx Musculoskeletal Disorders: Yes Hx Arthritis: Yes Hx Fibromyalgia: Yes (dx in 20's) - PSYCH Hx Psych Problems: Yes Hx Anxiety: Yes Hx Depression: Yes Comment:: pt very hard to get PAT info and med list from, uncooperative. - HEMATOLOGY/ONCOLOGY Hx Hematology/Oncology Disorders: Yes Hx Bruising: Yes Hx Unexplained Bleeding: No (denies) Family Medical History Any Significant Family History?: Yes Hx Alcohol Use: Mother Hx Anxiety: Mother Hx HTN: Father Physical Exam - General General Appearance: Alert, Oriented x3, Cooperative, Mild distress - Head Head exam: Normal inspection - Eye Eye exam: Normal appearance, PERRL, EOMI Pupils: Normal accommodation - ENT ENT exam: Normal exam, Mucous membranes moist, Normal external ear exam, Normal orophraynx Ear exam: Normal external inspection. negative: External canal tenderness Nasal Exam: Normal inspection. negative: Discharge, Sinus tenderness Mouth exam: Normal external inspection, Tongue normal Teeth exam: Normal inspection. negative: Dental caries Throat exam: Normal inspection. negative: Tonsillar erythema, Tonsillar exudate - Neck Neck exam: Normal inspection, Full ROM. negative: Tenderness - Respiratory Respiratory exam: Normal lung sounds bilaterally. negative: Respiratory distress - Cardiovascular Cardiovascular Exam: Regular rate, Normal rhythm, Normal heart sounds - GI/Abdominal GI/Abdominal exam: Soft, Normal bowel sounds. negative: Tenderness - Rectal Rectal exam: Deferred - exam: Deferred - Extremities Extremities exam: Normal inspection, Full ROM, Normal capillary refill. negative: Tenderness - Back Back exam: Reports: Normal inspection, Full ROM. Denies: Muscle spasm, Rash noted, Tenderness - Neurological Neurological exam: Alert, CN II-XII intact, Normal gait, Oriented X3 - Psychiatric Psychiatric exam: Agitated, Anxious, Depressed, Suicidal ideation - Skin Skin exam: Dry, Intact, Normal color, Warm Course Vital Signs 11/10/18 11/10/18 15:34 17:08 Temperature 97.3 F L Pulse Rate 79 Respiratory 18 Rate Blood Pressure 103/67 Pulse Ox 97 - Reevaluation(s) Reevaluation #1: 11/10/18 19:11 pt became threatening to staff and attempting to leave Medical Decision Making - Lab Data Result diagrams: 11/10/18 16:25 11/10/18 16:25 Lab Results 11/10/18 11/10/18 11/10/18 Range/Units 16:25 16:25 16:25 WBC 8.3 (4.2-12.2) K/uL RBC 4.28 (3.80-5.40) M/uL Hgb 14.5 (11.6-16.0) gm/dl Hct 41.6 (35.0-47.0) % MCV 97.2 H (81-97) fl MCH 33.9 H (27-33) pg MCHC 34.9 (32-36) g/dl RDW 14.4 (11.5-14.5) % Plt Count 161 (130-400) K/uL MPV 11.3 H (7.4-10.4) fl Gran % 60.5 (47-80) % Lymphocytes % 33.5 (16-45) % Monocytes % 4.1 (0-9) % Eosinophils % 1.7 (0-6) % Basophils % 0.2 (0-6) % Sodium 142 (136-145) mmol/L Potassium 4.1 (3.4-4.5) mmol/L Chloride 109 H (98-107) mmol/L Carbon Dioxide 22.0 (22-29) mmol/L Anion Gap 11.0 (7-16) BUN 8 (6-20) mg/dL Creatinine 0.5 (0.5-0.9) mg/dL Estimated GFR > 60 mL/min Random Glucose 85 (74-109) mg/dL Calcium 9.4 (8.6-10.0) mg/dL Total Bilirubin 0.20 (0.2-1.0) mg/dL AST 18 (10.0-35.0) U/L ALT 17 (<33) U/L Alkaline Phosphatase 154 H (35-104) U/L Total Protein 6.6 (6.6-8.7) g/dL Albumin 4.1 (4.0-5.0) g/dL Globulin 2.5 (1.4-4.8) gm/dL Albumin/Globulin Ratio 1.6 (1.1-1.8) TSH 1.32 (0.270-4.20) uIU/mL Urine Color Urine Appearance Urine pH (5.0-8.0) Ur Specific [place] (1.002-1.030) Urine Protein (NEGATIVE) Urine Glucose (UA) (NEGATIVE) Urine Ketones (NEGATIVE) Urine Blood (NEGATIVE) Urine Nitrite (NEGATIVE) Urine Bilirubin (NEGATIVE) Urine Urobilinogen (0.20 - 1.00) E.U./dL Ur Leukocyte Esterase (NEGATIVE) Urine RBC (NONE SEEN) Urine WBC (0-2/hpf) Ur Epithelial Cells (FEW) Urine Bacteria Urine Opiates Screen Ur Oxycodone Screen Urine Methadone Screen Ur Propoxyphene Screen Ur Barbituates Screen Ur Tricyclics Screen Ur Phencyclidine Scrn Ur Amphetamine Screen U Methamphetamines Scrn U Benzodiazepines Scrn Urine Cocaine Screen Urine Cannabis Screen Ethyl Alcohol 0.000 (0-0.010) g/dL 11/10/18 11/10/18 Range/Units 17:30 17:40 WBC (4.2-12.2) K/uL RBC (3.80-5.40) M/uL Hgb (11.6-16.0) gm/dl Hct (35.0-47.0) % MCV (81-97) fl MCH (27-33) pg MCHC (32-36) g/dl RDW (11.5-14.5) % Plt Count (130-400) K/uL MPV (7.4-10.4) fl Gran % (47-80) % Lymphocytes % (16-45) % Monocytes % (0-9) % Eosinophils % (0-6) % Basophils % (0-6) % Sodium (136-145) mmol/L Potassium (3.4-4.5) mmol/L Chloride (98-107) mmol/L Carbon Dioxide (22-29) mmol/L Anion Gap (7-16) BUN (6-20) mg/dL Creatinine (0.5-0.9) mg/dL Estimated GFR mL/min Random Glucose (74-109) mg/dL Calcium (8.6-10.0) mg/dL Total Bilirubin (0.2-1.0) mg/dL AST (10.0-35.0) U/L ALT (<33) U/L Alkaline Phosphatase (35-104) U/L Total Protein (6.6-8.7) g/dL Albumin (4.0-5.0) g/dL Globulin (1.4-4.8) gm/dL Albumin/Globulin Ratio (1.1-1.8) TSH (0.270-4.20) uIU/mL Urine Color Yellow Urine Appearance Clear Urine pH 7.0 (5.0-8.0) Ur Specific [place] 1.015 (1.002-1.030) Urine Protein Negative (NEGATIVE) Urine Glucose (UA) Negative (NEGATIVE) Urine Ketones Negative (NEGATIVE) Urine Blood Negative (NEGATIVE) Urine Nitrite Negative (NEGATIVE) Urine Bilirubin Negative (NEGATIVE) Urine Urobilinogen 0.2 (0.20 - 1.00) E.U./dL Ur Leukocyte Esterase Trace H (NEGATIVE) Urine RBC None seen (NONE SEEN) Urine WBC 0 - 2 (0-2/hpf) Ur Epithelial Cells 3 - 6 (FEW) Urine Bacteria None seen Urine Opiates Screen Not detected Ur Oxycodone Screen Detected Urine Methadone Screen Not detected Ur Propoxyphene Screen Not detected Ur Barbituates Screen Detected Ur Tricyclics Screen Detected Ur Phencyclidine Scrn Not detected Ur Amphetamine Screen Not detected U Methamphetamines Scrn Not detected U Benzodiazepines Scrn Detected Urine Cocaine Screen Not detected Urine Cannabis Screen Detected Ethyl Alcohol (0-0.010) g/dL Disposition Disposition: Transfer Clinical Impression: Suicidal ideation Disposition: Acute Care Hospital Transfer Transfer To: [facility] Reason For Transfer: suicidal Accepting Physician: psych Time Discussed w/Accepting Physician: 19:33 Forms: Patient Portal Access Quality - Quality Measures Quality Measures: N/A - Blood Pressure Screening Does Patient Have Any of the Following: No Blood Pressure Classification: Normal BP Reading Systolic Measurement: 103 Diastolic Measurement: 67 Screening for High Blood Pressure: < Normal BP, F/U Not Required > [G8783]
[2018-11-10] MEDS ORDERED: LORAZEPAM 2 MG/ML VIAL IV ONE (19:14)
[2018-11-10] MEDS ORDERED: OLANZAPINE 5MG TABLET PO SCH (19:15)
[2018-11-10] MEDS ORDERED: BUTALB/ACETAMINOPHEN/CAFFEINE TABLET PO ONE (19:17)
[2018-11-10] MEDS ORDERED: OLANZAPINE 10 MG VIAL IM ONE (21:05)
--- NOTE | 2018-11-10 21:08 | Emergency Department Record ---
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 Travel/Exposure to [place] Within 21 Days of Symptoms: No - History of Present Illness -: Year(s) Associated Psychiatric Symptoms: Suicidal ideation History of same: Yes Quality: Constant Improves With: Other Context: Significant life stressor Associated Symptoms: Headache, Vomiting Treatments Prior to Arrival: None If Self Harm: Admits thoughts of self harm Details of Plan: Denies plan. - [place] Coma Scale Eye Response: (4) Open spontaneously Motor Response: (6) Obeys commands Verbal Response: (5) Oriented Brent Total: 15 - Related Data Allergies Allergy/AdvReac Type Severity Reaction Status Date / Time ketorolac tromethamine Allergy HIVES Verified 06/12/18 13:08 [From Toradol] citalopram hydrobromide AdvReac seizure Verified 06/12/18 13:08 [From Celexa] Review of Systems Constitutional: Reports: As per HPI. Denies: Chills, Fever, Malaise, Night sweats, Weakness, Weight change Eyes: Reports: As per HPI. Denies: Eye discharge, Eye pain, Photophobia, Vision change ENT: Reports: As per HPI. Denies: Congestion, Dental pain, Ear pain, Epistaxis , Hearing loss, Throat pain Respiratory: Reports: As per HPI. Denies: Cough, Dyspnea, Hemoptysis, Stridor, Wheezes Cardiovascular: Reports: As per HPI. Denies: Arrhythmia, Chest pain, Dyspnea on exertion, Edema, Murmurs, Orthopnea, Palpitations, Paroxysmal nocturnal dyspnea, Rheumatic Fever, Syncope Endocrine: Reports: As per HPI. Denies: Fatigue, Heat or cold intolerance, Polydipsia, Polyuria Gastrointestinal: Reports: As per HPI. Denies: Abdominal pain, Constipation, Diarrhea, Hematemesis, Hematochezia, Melena, Nausea, Vomiting Genitourinary: Reports: As per HPI. Denies: Abnormal menses, Discharge, Dyspareunia, Dysuria, Frequency, Hematuria, Incontinence, Retention, Urgency Musculoskeletal: Reports: As per HPI, Back pain. Denies: Arthralgia, Gout, Joint swelling, Myalgia, Neck pain Skin: Reports: As per HPI. Denies: Bruising, Change in color, Change in hair/ nails, Lesions, Pruritus, Rash Neurological: Reports: As per HPI. Denies: Abnormal gait, Confusion, Headache, Numbness, Paresthesias, Seizure, Tingling, Tremors, Vertigo, Weakness Psychiatric: Reports: As per HPI, Suicidal thoughts. Denies: Anxiety, Auditory hallucinations, Depression, Homicidal thoughts, Visual hallucinations Hematological/Lymphatic: Reports: As per HPI. Denies: Anemia, Blood Clots, Easy bleeding, Easy bruising, Swollen glands Past Medical History - SOCIAL HISTORY Smoking Status: Current every day smoker Alcohol Use: None Drug Use: Heavy Drug Use Detail:: Marijuana - RESPIRATORY Hx Respiratory Disorders: Yes Hx Asthma: Yes (controlled for now does inhalers and neb txs) Hx Bronchitis: Yes (last winter) Hx COPD: Yes - CARDIOVASCULAR Hx Cardio Disorders: Yes Hx Chest Pain: Yes (states anxiety) Hx Hypotension: Yes (states gets real low) - NEURO Hx Neuro Disorders: Yes Hx of Migraines: Yes (trigeminal neuralgia) Hx Seizures: Yes (pt unsure of when last seizure was.) Comment:: daily headaches sees neurologist states grand mal seizures - GI Hx GI Disorders: Yes Hx Abdominal Pain: Yes Hx Reflux: Yes Hx Nausea/Vomiting: Yes Hx Wt Loss/Wt Gain: Yes - Hx Genitourinary Disorders: No - ENDOCRINE Hx Endocrine Disorders: No Hx Diabetes: No Hx Thyroid Disease: No - MUSCULOSKELETAL Hx Musculoskeletal Disorders: Yes Hx Arthritis: Yes Hx Fibromyalgia: Yes (dx in 20's) - PSYCH Hx Psych Problems: Yes Hx Anxiety: Yes Hx Depression: Yes Comment:: pt very hard to get PAT info and med list from, uncooperative. - HEMATOLOGY/ONCOLOGY Hx Hematology/Oncology Disorders: Yes Hx Bruising: Yes Hx Unexplained Bleeding: No (denies) Family Medical History Any Significant Family History?: Yes Hx Alcohol Use: Mother Hx Anxiety: Mother Hx HTN: Father Physical Exam - General Limitations: No limitations Course Vital Signs 11/10/18 11/10/18 15:34 17:08 Temperature 97.3 F L Pulse Rate 79 Respiratory 18 Rate Blood Pressure 103/67 Pulse Ox 97 - Reevaluation(s) Reevaluation #1: 11/10/18 21:07 Assumed care from previous provider. Patient is unable to go to [facility] as previously planned by previous provider due to insurance reasons. Patient is unwilling to remain in her room, becoming increasingly agitated, soft restraints ordered and Zyprexa ordered IM. Reevaluation #2: 11/10/18 21:27 After numerous attempts at verbal de-escalation, patient has now been restrained with soft restraints, Zyprexa 10 mg IM ordered. Will continue to monitor closely. Nursing staff is attempting to find placement at this time as well. Reevaluation #3: 11/10/18 21:36 Patient was reassessed, more calm at this time. Assured the patient that staff are attempting to place the patient at this time. Reevaluation #4: 11/10/18 21:57 Patient now becoming more agitated, shouting obscenities at staff members with room open. Benadryl and Ativan ordered for continued agitation with the goal of removing soft restraints. Reevaluation #5: 11/10/18 22:30 Patient was reassessed following Ativan and Benadryl, she is awake, calmer. Will attempt to partially remove restraints soon. 11/10/18 23:36 Zachary and Stanislaw Chau have declined the patient at this time. Packets faxed to [facility]. Patient intermittently yelling at staff from the room, will continue to monitor. 11/11/18 00:37 Patient used bedside commode with nursing staff present Will leave restraints off at this time and continue to observe. 11/11/18 01:58 Patient is resting comfortably at this time. Chelo and Kiran Landis have denied the patient. Will continue to observe. 11/11/18 02:13 Patient has been accepted to [facility] in [place], [place] for transport at 6:00 AM. 11/11/18 05:40 Report called to [facility], awaiting EMS transfer around 6: 30 AM. Patient continues to sleep, resting comfortably on re-examination. Medical Decision Making - Lab Data Result diagrams: 11/10/18 16:25 11/10/18 16:25 Lab Results 11/10/18 11/10/18 11/10/18 Range/Units 16:25 16:25 16:25 WBC 8.3 (4.2-12.2) K/uL RBC 4.28 (3.80-5.40) M/uL Hgb 14.5 (11.6-16.0) gm/dl Hct 41.6 (35.0-47.0) % MCV 97.2 H (81-97) fl MCH 33.9 H (27-33) pg MCHC 34.9 (32-36) g/dl RDW 14.4 (11.5-14.5) % Plt Count 161 (130-400) K/uL MPV 11.3 H (7.4-10.4) fl Gran % 60.5 (47-80) % Lymphocytes % 33.5 (16-45) % Monocytes % 4.1 (0-9) % Eosinophils % 1.7 (0-6) % Basophils % 0.2 (0-6) % Sodium 142 (136-145) mmol/L Potassium 4.1 (3.4-4.5) mmol/L Chloride 109 H (98-107) mmol/L Carbon Dioxide 22.0 (22-29) mmol/L Anion Gap 11.0 (7-16) BUN 8 (6-20) mg/dL Creatinine 0.5 (0.5-0.9) mg/dL Estimated GFR > 60 mL/min Random Glucose 85 (74-109) mg/dL Calcium 9.4 (8.6-10.0) mg/dL Total Bilirubin 0.20 (0.2-1.0) mg/dL AST 18 (10.0-35.0) U/L ALT 17 (<33) U/L Alkaline Phosphatase 154 H (35-104) U/L Total Protein 6.6 (6.6-8.7) g/dL Albumin 4.1 (4.0-5.0) g/dL Globulin 2.5 (1.4-4.8) gm/dL Albumin/Globulin Ratio 1.6 (1.1-1.8) TSH 1.32 (0.270-4.20) uIU/mL Urine Color Urine Appearance Urine pH (5.0-8.0) Ur Specific [place] (1.002-1.030) Urine Protein (NEGATIVE) Urine Glucose (UA) (NEGATIVE) Urine Ketones (NEGATIVE) Urine Blood (NEGATIVE) Urine Nitrite (NEGATIVE) Urine Bilirubin (NEGATIVE) Urine Urobilinogen (0.20 - 1.00) E.U./dL Ur Leukocyte Esterase (NEGATIVE) Urine RBC (NONE SEEN) Urine WBC (0-2/hpf) Ur Epithelial Cells (FEW) Urine Bacteria Urine Opiates Screen Ur Oxycodone Screen Urine Methadone Screen Ur Propoxyphene Screen Ur Barbituates Screen Ur Tricyclics Screen Ur Phencyclidine Scrn Ur Amphetamine Screen U Methamphetamines Scrn U Benzodiazepines Scrn Urine Cocaine Screen Urine Cannabis Screen Ethyl Alcohol 0.000 (0-0.010) g/dL 11/10/18 11/10/18 Range/Units 17:30 17:40 WBC (4.2-12.2) K/uL RBC (3.80-5.40) M/uL Hgb (11.6-16.0) gm/dl Hct (35.0-47.0) % MCV (81-97) fl MCH (27-33) pg MCHC (32-36) g/dl RDW (11.5-14.5) % Plt Count (130-400) K/uL MPV (7.4-10.4) fl Gran % (47-80) % Lymphocytes % (16-45) % Monocytes % (0-9) % Eosinophils % (0-6) % Basophils % (0-6) % Sodium (136-145) mmol/L Potassium (3.4-4.5) mmol/L Chloride (98-107) mmol/L Carbon Dioxide (22-29) mmol/L Anion Gap (7-16) BUN (6-20) mg/dL Creatinine (0.5-0.9) mg/dL Estimated GFR mL/min Random Glucose (74-109) mg/dL Calcium (8.6-10.0) mg/dL Total Bilirubin (0.2-1.0) mg/dL AST (10.0-35.0) U/L ALT (<33) U/L Alkaline Phosphatase (35-104) U/L Total Protein (6.6-8.7) g/dL Albumin (4.0-5.0) g/dL Globulin (1.4-4.8) gm/dL Albumin/Globulin Ratio (1.1-1.8) TSH (0.270-4.20) uIU/mL Urine Color Yellow Urine Appearance Clear Urine pH 7.0 (5.0-8.0) Ur Specific [place] 1.015 (1.002-1.030) Urine Protein Negative (NEGATIVE) Urine Glucose (UA) Negative (NEGATIVE) Urine Ketones Negative (NEGATIVE) Urine Blood Negative (NEGATIVE) Urine Nitrite Negative (NEGATIVE) Urine Bilirubin Negative (NEGATIVE) Urine Urobilinogen 0.2 (0.20 - 1.00) E.U./dL Ur Leukocyte Esterase Trace H (NEGATIVE) Urine RBC None seen (NONE SEEN) Urine WBC 0 - 2 (0-2/hpf) Ur Epithelial Cells 3 - 6 (FEW) Urine Bacteria None seen Urine Opiates Screen Not detected Ur Oxycodone Screen Detected Urine Methadone Screen Not detected Ur Propoxyphene Screen Not detected Ur Barbituates Screen Detected Ur Tricyclics Screen Detected Ur Phencyclidine Scrn Not detected Ur Amphetamine Screen Not detected U Methamphetamines Scrn Not detected U Benzodiazepines Scrn Detected Urine Cocaine Screen Not detected Urine Cannabis Screen Detected Ethyl Alcohol (0-0.010) g/dL Critical Care Time Critical Care Time: Yes Total Critical Care Time: 120 Critical Care Time: Evaluation of treatment of suicidal ideation, acute agitation, chemical and physical restraints necessary for acute agitation and aggression. Review of the patient's laboratory results. Initiation of transfer for inpatient psychiatric bed placement, frequent reassessments following restraint placement and 1:1 monitoring, documentation of patient's care in the medical record. Disposition Clinical Impression: Suicidal ideation Disposition: Acute Care Hospital Transfer Forms: Patient Portal Access Quality - Quality Measures Quality Measures: N/A - Blood Pressure Screening Does Patient Have Any of the Following: No Blood Pressure Classification: Normal BP Reading Systolic Measurement: 103 Diastolic Measurement: 67 Screening for High Blood Pressure: < Normal BP, F/U Not Required > [G8783]
[2018-11-10] MEDS ORDERED: DIPHENHYDRAMINE HCL 50 MG/ML VIAL IM ONE (21:58)
[2018-11-11] MEDS ORDERED: BUTALB/ACETAMINOPHEN/CAFFEINE TABLET PO ONE (06:07)
== END 2018-11-11 07:01 | disposition short-term general hospital (02) ==
LOC: ER 15:31
DX: R45.851 Suicidal ideations (principal); F32.9 Major depressive disorder, single episode, unspecified; R51 Headache; R11.11 Vomiting without nausea; J44.9 Chronic obstructive pulmonary disease, unspecified; F17.210 Nicotine dependence, cigarettes, uncomplicated
CPT/HCPCS: 80053; 80305; 80320; 81001; 84443; 85025; 96372; 96374; 99285; J1200

== ENCOUNTER 2019-02-04 08:15 | Emergency (ER) | payer MEDICARE, MEDICAID ==
[2019-02-04] MEDS ORDERED: 0.9 % SODIUM CHLORIDE 1000ML 1,000 ML IV PRN (08:25)
[2019-02-04 08:41] LABS: ABSOLUTE NEUTROPHIL COUNT 11.12; HEMATOCRIT 47.6 % (35.0-47.0); HEMOGLOBIN 15.4 gm/dl (11.6-16.0); MEAN CELL VOLUME 101.1 fl (81-97); MEAN CORPUSCULAR HEMOGLOBIN 32.7 pg (27-33); MEAN CORPUSCULAR HGB CONC 32.4 g/dl (32-36); MEAN PLATELET VOLUME 11.9 fl (7.4-10.4); PLATELET COUNT 302 K/uL (130-400); RED BLOOD COUNT 4.71 M/uL (3.80-5.40); RED CELL DISTRIBUTION WIDTH 14.8 % (11.5-14.5)
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
[2019-02-04 08:53] LABS: BLOOD UREA NITROGEN 14 mg/dL (6-20); CREATININE 0.7 mg/dL (0.5-0.9); EST GLOMERULAR FILTRATION RATE > 60 mL/min; TOTAL PROTEIN 7.9 g/dL (6.6-8.7)
[2019-02-04 08:56] LABS: GLUCOSE,RANDOM 229 mg/dL (74-109)
[2019-02-04 08:58] LABS: ALB/GLOB RATIO 1.6 (1.1-1.8); ALBUMIN 4.9 g/dL (4.0-5.0); ALKALINE PHOSPHATASE 163 U/L (35-104); ALT/SGPT 16 U/L (<33); AST/SGOT 23 U/L (10.0-35.0)
[2019-02-04 09:05] LABS: ACETAMINOPHEN < 5.0 ug/mL (10.0-30.0); SALICYLATE < 0.3 mg/dL (2.8-20)
[2019-02-04 09:32] LABS: URINE APPEARANCE CLEAR; URINE BILIRUBIN SMALL (NEGATIVE); URINE BLOOD TRACE-I (NEGATIVE); URINE COLOR YELLOW; URINE GLUCOSE (UA) NEGATIVE (NEGATIVE); URINE KETONE 15 mg/dL (NEGATIVE); URINE LEUKOCYTE ESTERASE NEGATIVE (NEGATIVE); URINE NITRITE NEGATIVE (NEGATIVE); URINE UROBILINOGEN 0.2 E.U./dL (0.20 - 1.00)
[2019-02-04] MEDS ORDERED: POTASSIUM CHLORIDE 20 MEQ TABLET PO ONE (09:36)
[2019-02-04 09:42] LABS: AMPHETAMINE SCREEN URINE NOT DETECTED; BARBITURATE SCREEN URINE DETECTED; BENZODIAZEPINE SCREEN URINE NOT DETECTED; COCAINE SCREEN URINE NOT DETECTED; METHADONE SCREEN URINE NOT DETECTED; METHAMPHETAMINE SCREEN NOT DETECTED; OPIATE SCREEN URINE NOT DETECTED; OXYCODONE SCREEN URINE NOT DETECTED; PHENCYCLIDINE SCREEN URINE NOT DETECTED; PROPOXYPHENE SCREEN URINE NOT DETECTED; THC SCREEN URINE NOT DETECTED; TRICYCLIC ANTIDEPRESSANT SCRN DETECTED
[2019-02-04 09:43] LABS: URINE BACTERIA FEW; URINE RBC 0 - 2 (NONE SEEN); URINE SQUAMOUS EPITHELIAL CELL 0 - 2 /hpf; URINE WBC 0 - 2 (0-2/hpf)
--- NOTE | 2019-02-05 19:44 | CT SCAN REPORT ---
EXAM: CT SCAN HEAD WO CONTRAST HISTORY: FOUND ON GROUND. ALTERED MENTAL STATUS. SLURRED SPEECH. TECHNIQUE: Routine noncontrast CT of the brain. COMPARISON: CT brain without contrast dated 06/12/2018. FINDINGS: The examination is mildly limited by artifact. The ventricles and subarachnoid spaces are normal in size for age. No new area of abnormally increased or decreased attenuation is noted throughout the brain substance. No new abnormal extraaxial fluid collection is seen. No skull fracture is identified. Moderate leftward deviation of the nasal septum is redemonstrated. The visualized paranasal sinuses and mastoid air cells are clear. The orbits as visualized are unremarkable. IMPRESSION: NO CT EVIDENCE OF AN ACUTE INTRACRANIAL ABNORMALITY NOR SKULL FRACTURE WITHOUT CHANGE IN APPEARANCE OF THE BRAIN SINCE 06/12/2018. JOB NUMBER: [id number] [facility]
--- NOTE | 2019-02-05 19:52 | CT SCAN REPORT ---
EXAM: CT SCAN CERVICAL SPINE WO CONTRAST HISTORY: FOUND ON GROUND THIS MORNING. ALTERED MENTAL STATUS. SEIZURE HISTORY. TECHNIQUE: Thin-collimation helical CT examination of the cervical spine is performed without intravenous contrast. Coronal and sagittal reformatted images are generated and reviewed. COMPARISON: No prior imaging of the cervical spine available for comparison. FINDINGS: There is normal bone mineralization. There is straightening of the normal cervical lordosis. There is mild anterolisthesis of C3 on C4, likely relating to advanced facet arthropathy. There is minimal anterolisthesis of C4 on C5, also likely relating to degenerative disease. There is equivocal retrolisthesis of C5 on C6. The vertebral bodies are otherwise normal in alignment and height. No acute fracture or prevertebral soft tissue swelling. No suspicious lytic or blastic bone lesion. Mild multilevel degenerative disc/endplate changes are present with relative sparing at the C2-C3, C6-C7, and C7-T1 levels. Multilevel bilateral facet arthropathy is present, most pronounced at the mid to upper levels, where it is moderate to advanced. There is widening of the right C4-C5 facet joint, possibly due to joint effusion. There is multilevel neural foraminal narrowing, left greater than right, most pronounced at the upper levels secondary to facet degenerative change and uncovertebral joint spurring. The visualized paranasal sinuses and mastoid air cells are clear. No cervical mass nor adenopathy. Biapical pleural and parenchymal scarring is present. IMPRESSION: 1. NO ACUTE FRACTURE, SUSPICIOUS SUBLUXATION, OR PREVERTEBRAL SOFT TISSUE SWELLING. 2. MULTILEVEL DEGENERATIVE CHANGES, DETAILED ABOVE. MINOR ANTEROLISTHESIS OF C3 ON C4 WELL C4 ON C5, LIKELY RELATING TO FACET ARTHROPATHY. EQUIVOCAL RETROLISTHESIS OF C5 ON C6, ALSO LIKELY DEGENERATIVE. J[facility]BER: [id number] [facility]
== END 2019-02-04 10:21 | disposition home or self-care (01) ==
LOC: ER 08:15
DX: S00.03XA Contusion of scalp, initial encounter (principal); S00.81XA Abrasion of other part of head, initial encounter; R51 Headache; R41.82 Altered mental status, unspecified; E87.6 Hypokalemia; G40.909 Epilepsy, unspecified, not intractable, without status epilepticus; R47.81 Slurred speech; J44.9 Chronic obstructive pulmonary disease, unspecified; F17.210 Nicotine dependence, cigarettes, uncomplicated; W19.XXXA Unspecified fall, initial encounter; Y92.59 Other trade areas as the place of occurrence of the external cause
CPT/HCPCS: 99284 ×2; 82140; 85730; 80053; 81001; 80305; 85027; 72125; 70450; 93005; 93010; G0480 ×3; 80320; 80329

== ENCOUNTER 2019-02-17 18:41 | Emergency (ER) | payer MEDICARE, MEDICAID ==
--- NOTE | 2019-02-17 19:19 | Emergency Department Record ---
History of Present Illness - General Chief Complaint: Fall Injury Stated Complaint: MULTIPLE FALLS Time Seen by Provider: 02/17/19 18:48 Source: Patient Mode of Arrival: Ambulatory Limitations: No limitations - History of Present Illness Initial Comments: pt brought in by ems for many falls. pt states she has a lump on her head . she states she cant walk. she has bruises carol her body. she is slurring her words. she denies taking anything that is not prescribed MD Complaint: Fall -: Unknown When Fall Occurred: Unsure Fall Witnessed: No Place Fall Occurred: Home Loss of Consciousness: Unsure Prolonged Down Time?: Unclear Location: Head, Back Location - Extremities: Left: Arm, Lower Leg, Right: Arm, Lower Leg Context: History of frequent falls Associated Symptoms: Denies - Corinne Coma Scale Eye Response: (4) Open spontaneously Motor Response: (6) Obeys commands Verbal Response: (5) Oriented Brent Total: 15 - Related Data Home Medications Medication Instructions Recorded Confirmed Last Taken Hydroxyzine Pamoate [Vistaril] 50 mg PO QID PRN 02/17/19 02/17/19 Unknown Omeprazole 40 mg PO BID 02/17/19 02/17/19 Unknown Tizanidine HCl 4 mg PO TID 02/17/19 02/17/19 Unknown Allergies Allergy/AdvReac Type Severity Reaction Status Date / Time ketorolac tromethamine Allergy HIVES Verified 02/17/19 18:49 [From Toradol] chlorpromazine AdvReac MAKES ME Verified 02/17/19 18:49 [From Thorazine] MEAN citalopram hydrobromide AdvReac seizure Verified 02/17/19 18:49 [From Celexa] lithium AdvReac MAKES ME Verified 02/17/19 18:49 MEAN Travel Screening - Travel/Exposure Within Last 30 Days Have you traveled within the last 30 days?: No Review of Systems Reviewed: No additional complaints except as noted below Constitutional: Reports: As per HPI. Denies: Chills, Fever, Malaise, Night sweats, Weakness, Weight change Eyes: Reports: As per HPI. Denies: Eye discharge, Eye pain, Photophobia, Vision change ENT: Reports: As per HPI. Denies: Congestion, Dental pain, Ear pain, Epistaxis, Hearing loss, Throat pain Respiratory: Reports: As per HPI. Denies: Cough, Dyspnea, Hemoptysis, Stridor, Wheezes Cardiovascular: Reports: As per HPI. Denies: Arrhythmia, Chest pain, Dyspnea on exertion, Edema, Murmurs, Orthopnea, Palpitations, Paroxysmal nocturnal dyspnea, Rheumatic Fever, Syncope Endocrine: Reports: As per HPI. Denies: Fatigue, Heat or cold intolerance, Polydipsia, Polyuria Gastrointestinal: Reports: As per HPI. Denies: Abdominal pain, Constipation, Diarrhea, Hematemesis, Hematochezia, Melena, Nausea, Vomiting Genitourinary: Reports: As per HPI. Denies: Abnormal menses, Discharge, Dyspareunia, Dysuria, Frequency, Hematuria, Incontinence, Retention, Urgency Musculoskeletal: Reports: As per HPI. Denies: Arthralgia, Back pain, Gout, Joint swelling, Myalgia, Neck pain Skin: Reports: As per HPI. Denies: Bruising, Change in color, Change in hair/nails, Lesions, Pruritus, Rash Neurological: Reports: As per HPI. Denies: Abnormal gait, Confusion, Headache, Numbness, Paresthesias, Seizure, Tingling, Tremors, Vertigo, Weakness Psychiatric: Reports: As per HPI. Denies: Anxiety, Auditory hallucinations, Depression, Homicidal thoughts, Suicidal thoughts, Visual hallucinations Hematological/Lymphatic: Reports: As per HPI. Denies: Anemia, Blood Clots, Easy bleeding, Easy bruising, Swollen glands Past Medical History - SOCIAL HISTORY Smoking Status: Heavy tobacco smoker (>10/day) Alcohol Use: None Drug Use: Occasional Drug Use Detail:: Marijuana - RESPIRATORY Hx Respiratory Disorders: Yes Hx Asthma: Yes (FAIR CONTROL ON INHALER) Hx Bronchitis: Yes (2018) Hx COPD: Yes Hx Dyspnea: Yes - CARDIOVASCULAR Hx Cardio Disorders: Yes Hx Hypotension: Yes - NEURO Hx Neuro Disorders: Yes Hx Headaches: Yes Hx of Migraines: Yes (trigeminal neuralgia) Hx Seizures: Yes (grand mal) Hx Speech Problem: Yes - GI Hx GI Disorders: Yes Hx Reflux: Yes Hx Nausea/Vomiting: No Hx Ulcer: Yes - Hx Genitourinary Disorders: No - ENDOCRINE Hx Endocrine Disorders: No Hx Diabetes: No Hx Thyroid Disease: No - MUSCULOSKELETAL Hx Musculoskeletal Disorders: Yes Hx Arthritis: Yes (DDD) Hx Fibromyalgia: Yes (dx in 20's) - PSYCH Hx Psych Problems: Yes Hx Anxiety: Yes (BIPOLAR) Hx Behavior Problems: Yes Hx Depression: Yes Comment:: RECENT HOSPITALIZATION . PTSD - HEMATOLOGY/ONCOLOGY Hx Hematology/Oncology Disorders: Yes Hx Bruising: Yes (BRUISES EASILY) Hx Unexplained Bleeding: No (denies) Family Medical History Any Significant Family History?: Yes Hx Alcohol Use: Mother Hx Anxiety: Mother Hx HTN: Father Physical Exam - General General Appearance: Alert, Oriented x3, Cooperative, Mild distress - Head Head exam: Normal inspection Head exam detail: Hematoma - Eye Eye exam: Normal appearance, PERRL, EOMI Pupils: Normal accommodation - ENT ENT exam: Normal exam, Mucous membranes moist, Normal external ear exam, Normal orophraynx Ear exam: Normal external inspection. negative: External canal tenderness Nasal Exam: Normal inspection. negative: Discharge, Sinus tenderness Mouth exam: Normal external inspection, Tongue normal Teeth exam: Normal inspection. negative: Dental caries Throat exam: Normal inspection. negative: Tonsillar erythema, Tonsillar exudate - Neck Neck exam: Normal inspection, Full ROM. negative: Tenderness - Respiratory Respiratory exam: Normal lung sounds bilaterally. negative: Respiratory distress - Cardiovascular Cardiovascular Exam: Regular rate, Normal rhythm, Normal heart sounds - GI/Abdominal GI/Abdominal exam: Soft, Normal bowel sounds. negative: Tenderness - Rectal Rectal exam: Deferred - exam: Deferred - Extremities Extremities exam: Normal inspection, Full ROM, Normal capillary refill, Tenderness Image of Full Body: 1 - contusions 2 - cintusions of various age 3 - new linear contusion 4 - contusion - Back Back exam: Reports: Normal inspection, Full ROM. Denies: Muscle spasm, Rash noted, Tenderness - Neurological Neurological exam: Alert, CN II-XII intact, Normal gait, Oriented X3 - Psychiatric Psychiatric exam: Normal affect, Normal mood - Skin Skin exam: Dry, Intact, Normal color, Warm Course Vital Signs 02/17/19 18:47 Temperature 97.6 F Pulse Rate 82 Respiratory 18 Rate Blood Pressure 118/86 Pulse Ox 96 - Reevaluation(s) Reevaluation #1: 02/17/19 22:01 pt doing well, better. ct neg Medical Decision Making - Lab Data Result diagrams: 02/17/19 19:50 02/17/19 19:50 Disposition Disposition: Discharge Clinical Impression: Frequent falls, Multiple contusions, Hypokalemia Disposition: Home, Self-Care Condition: (1) Good Instructions: Fall Prevention for Older Adults (ED), Contusion in Adults (ED) Additional Instructions: follow up with family doctor. return sooner if worse Forms: Patient Portal Access Quality - Quality Measures Quality Measures: Blunt Head Trauma (>2yr) - Corinne Coma Scale Corinne Coma Scale: Brent Coma Scale Eye Response: (4) Open spontaneously Motor Response: (6) Obeys commands Verbal Response: (4) Confused conversation Corinne Total: 14 - Blunt Head Trauma - Adult Quality Measure: Measure #415: Utilization of CT for Minor Blunt Head Trauma ICD10 Codes Entered: Yes Was CT ordered: Yes Does Patient Have Any of the Following: No Exclusions Patient Presented Within 24 Hours of Injury: Yes Corinne Score: [address] for Minor Blunt Head Trauma: Not Eligible For Measure Additional Inclusion Criteria: More than 24hrs (OR) GCS not 15 (OR) CT not ordered. Indications For CT: Dangerous Mechanism of Injury Not Eligible Reason: GCS Score Less Than 15 - Blood Pressure Screening Does Patient Have Any of the Following: No Blood Pressure Classification: Pre-Hypertensive BP Reading Systolic Measurement: 118 Diastolic Measurement: 86 Screening for High Blood Pressure: < Pre-Hypertensive BP, F/U Documented > [G8950] Pre-Hypertensive Follow-up Interventions: Follow-up with rescreen every year.
[2019-02-17] MEDS ORDERED: 0.9 % SODIUM CHLORIDE 1,000 ML BAG IV ONE (19:21)
[2019-02-17 19:59] LABS: ABSOLUTE NEUTROPHIL COUNT 5.67; BASO % 0.2 % (0-6); EOS % 1.1 % (0-6); HEMATOCRIT 40.3 % (35.0-47.0); HEMOGLOBIN 13.2 gm/dl (11.6-16.0); LYMPH % 26.1 % (16-45); MEAN CELL VOLUME 99.5 fl (81-97); MEAN CORPUSCULAR HEMOGLOBIN 32.6 pg (27-33); MEAN CORPUSCULAR HGB CONC 32.8 g/dl (32-36); MEAN PLATELET VOLUME 11.6 fl (7.4-10.4); MONO % 4.6 % (0-9); PLATELET COUNT 183 K/uL (130-400); RED BLOOD COUNT 4.05 M/uL (3.80-5.40); RED CELL DISTRIBUTION WIDTH 14.5 % (11.5-14.5); WHITE BLOOD COUNT W/O DIFF 8.3 K/uL (4.2-12.2)
[2019-02-17 20:11] LABS: BLOOD UREA NITROGEN 11 mg/dL (6-20); CREATININE 0.6 mg/dL (0.5-0.9); EST GLOMERULAR FILTRATION RATE > 60 mL/min
[2019-02-17 20:12] LABS: TOTAL PROTEIN 6.6 g/dL (6.6-8.7)
[2019-02-17 20:14] LABS: GLUCOSE,RANDOM 70 mg/dL (74-109)
[2019-02-17 20:16] LABS: ALB/GLOB RATIO 1.8 (1.1-1.8); ALBUMIN 4.2 g/dL (4.0-5.0); ALT/SGPT 17 U/L (<33); AST/SGOT 21 U/L (10.0-35.0)
[2019-02-17 20:17] LABS: ALKALINE PHOSPHATASE 169 U/L (35-104)
[2019-02-17] MEDS ORDERED: POTASSIUM CHLORIDE 20 MEQ TABLET PO ONE (20:31)
[2019-02-17 21:28] LABS: URINE APPEARANCE CLEAR; URINE BILIRUBIN NEGATIVE (NEGATIVE); URINE BLOOD NEGATIVE (NEGATIVE); URINE COLOR YELLOW; URINE GLUCOSE (UA) NEGATIVE (NEGATIVE); URINE KETONE 15 mg/dL (NEGATIVE); URINE LEUKOCYTE ESTERASE NEGATIVE (NEGATIVE); URINE NITRITE NEGATIVE (NEGATIVE); URINE PROTEIN NEGATIVE (NEGATIVE); URINE UROBILINOGEN 0.2 E.U./dL (0.20 - 1.00)
[2019-02-17 21:40] LABS: AMPHETAMINE SCREEN URINE NOT DETECTED; BARBITURATE SCREEN URINE DETECTED; BENZODIAZEPINE SCREEN URINE DETECTED; COCAINE SCREEN URINE NOT DETECTED; METHADONE SCREEN URINE NOT DETECTED; METHAMPHETAMINE SCREEN NOT DETECTED; OPIATE SCREEN URINE NOT DETECTED; OXYCODONE SCREEN URINE NOT DETECTED; PHENCYCLIDINE SCREEN URINE DETECTED; PROPOXYPHENE SCREEN URINE NOT DETECTED; THC SCREEN URINE DETECTED; TRICYCLIC ANTIDEPRESSANT SCRN DETECTED
== END 2019-02-17 22:16 | disposition home or self-care (01) ==
LOC: ER 18:41
DX: S00.93XA Contusion of unspecified part of head, initial encounter (principal); S80.12XA Contusion of left lower leg, initial encounter; S80.11XA Contusion of right lower leg, initial encounter; S50.11XA Contusion of right forearm, initial encounter; S50.12XA Contusion of left forearm, initial encounter; S30.0XXA Contusion of lower back and pelvis, initial encounter; R47.81 Slurred speech; E87.6 Hypokalemia; R27.0 Ataxia, unspecified; J44.9 Chronic obstructive pulmonary disease, unspecified; F17.210 Nicotine dependence, cigarettes, uncomplicated; Z91.81 History of falling; W19.XXXA Unspecified fall, initial encounter; Y92.009 Unspecified place in unspecified non-institutional (private) residence as the place of occurrence of the external cause
CPT/HCPCS: 70450; 80053; 80305; 81003; 85025; 96360; 99284; J7030

== ENCOUNTER 2019-06-10 15:30 | Emergency (ER) | payer MEDICARE, MEDICAID ==
--- NOTE | 2019-06-10 15:41 | Emergency Department Record ---
History of Present Illness - General Chief Complaint: Difficulty Breathing Stated Complaint: BLOOD PESSURE Time Seen by Provider: 06/10/19 15:35 - Related Data Allergies Allergy/AdvReac Type Severity Reaction Status Date / Time ketorolac tromethamine Allergy HIVES Verified 06/10/19 15:32 [From Toradol] chlorpromazine AdvReac MAKES ME Verified 06/10/19 15:32 [From Thorazine] MEAN citalopram hydrobromide AdvReac seizure Verified 06/10/19 15:32 [From Celexa] lithium AdvReac MAKES ME Verified 06/10/19 15:32 MEAN Past Medical History - SOCIAL HISTORY Smoking Status: Heavy tobacco smoker (>10/day) Drug Use: Occasional Drug Use Detail:: Marijuana - RESPIRATORY Hx Respiratory Disorders: Yes Hx Asthma: Yes (FAIR CONTROL ON INHALER) Hx Bronchitis: Yes (2018) Hx COPD: Yes Hx Dyspnea: Yes - CARDIOVASCULAR Hx Cardio Disorders: Yes Hx Hypotension: Yes - NEURO Hx Neuro Disorders: Yes Hx Headaches: Yes Hx of Migraines: Yes (trigeminal neuralgia) Hx Seizures: Yes (grand mal) Hx Speech Problem: Yes - GI Hx GI Disorders: Yes Hx Reflux: Yes Hx Nausea/Vomiting: No Hx Ulcer: Yes - Hx Genitourinary Disorders: No - ENDOCRINE Hx Endocrine Disorders: No Hx Diabetes: No Hx Thyroid Disease: No - MUSCULOSKELETAL Hx Musculoskeletal Disorders: Yes Hx Arthritis: Yes (DDD) Hx Fibromyalgia: Yes (dx in 20's) - PSYCH Hx Psych Problems: Yes Hx Anxiety: Yes (BIPOLAR) Hx Behavior Problems: Yes Hx Depression: Yes Comment:: RECENT HOSPITALIZATION . PTSD - HEMATOLOGY/ONCOLOGY Hx Hematology/Oncology Disorders: Yes Hx Bruising: Yes (BRUISES EASILY) Hx Unexplained Bleeding: No (denies) Family Medical History Hx Alcohol Use: Mother Hx Anxiety: Mother Hx HTN: Father Disposition Quality - Blood Pressure Screening Does Patient Have Any of the Following: No Systolic Measurement: ~
== END 2019-06-10 15:57 | disposition left against medical advice (07) ==
LOC: ER 15:30
DX: Z53.29 Procedure and treatment not carried out because of patient's decision for other reasons (principal); R06.00 Dyspnea, unspecified; J44.9 Chronic obstructive pulmonary disease, unspecified; F17.210 Nicotine dependence, cigarettes, uncomplicated